=== PATIENT | male | born 1950 | race Caucasian/White ===

== ENCOUNTER → 2016-07-27 | Outpatient (CLI) | payer OTHER | LOC: FIMAGING 13:14 | PROVIDERS: ATTEND Nurse Practitioner Adult Health | DX: R22.42 Localized swelling, mass and lump, left lower limb (principal) ==

== ENCOUNTER → 2016-08-17 | Outpatient (CLI) | payer OTHER ==
[~2016-08-17] MED LIST: IOPAMIDOL (ISOVUE 370) 100 ML BTL IV ONE
== END ==
LOC: FIMAGING 15:57
PROVIDERS: ATTEND Radiology Diagnostic Radiology
DX: M79.89 Other specified soft tissue disorders (principal); N28.1 Cyst of kidney, acquired; K57.30 Diverticulosis of large intestine without perforation or abscess without bleeding; M51.36 Other intervertebral disc degeneration, lumbar region; M12.88 Other specific arthropathies, not elsewhere classified, other specified site
CPT/HCPCS: Q9967

== ENCOUNTER → 2016-09-13 | Outpatient (CLI) | payer OTHER | LOC: FIMAGING 07:33 | PROVIDERS: ATTEND Radiology Diagnostic Radiology | DX: Z01.818 Encounter for other preprocedural examination (principal); R22.42 Localized swelling, mass and lump, left lower limb ==

== ENCOUNTER 2017-07-15 07:43 | Inpatient (IN) | payer OTHER ==
--- NOTE | 2017-07-15 07:53 | EDPHY ---
H & P Time Seen by Provider: 07/15/17 07:52 HPI/ROS: CHIEF COMPLAINT: Chest tightness HISTORY OF PRESENT ILLNESS: Patient started having symptoms this last weekend on Saturday night about 36 hr ago. Intermittent through the day yesterday lasting about an hour with central chest tightness associated with a feeling of indigestion and sweating. Not pleuritic and did not radiate. Symptoms moderate and currently present slightly. Not exertional. REVIEW OF SYSTEMS: Eye: no change in vision ENT: no sore throat Cardiac: No palpitations or syncope Pulmonary: no cough or SOB Abdomen: no vomiting, diarrhea, abdominal pain Musculoskeletal: No leg swelling or calf pain. Skin: no rash Neuro: no headache Constitutional: no fever : no urinary symptoms A comprehensive 10 point review of systems is otherwise negative aside from elements mentioned in the history of present illness. PAST MEDICAL HISTORY: Includes hypertension, gout, back surgery, sleep apnea Family history positive for coronary disease Social history: Nonsmoker General Appearance: Alert and conversant, cooperative. Eyes: No scleral icterus. ENT, Mouth: Normal mucous membranes. Respiratory: Normal respiratory effort, breath sounds equal, lungs are clear to auscultation. Cardiovascular: Irregular rate and rhythm without murmur. Gastrointestinal: Abdomen is soft and non tender. Neurological: Alert, face symmetric, normal motor and sensory in extremities. Skin: Warm and dry, no rashes. Musculoskeletal: No peripheral edema. No calf tenderness. Psychiatric: Not agitated. Emergency Department course/MDM: EKG shows atrial fibrillation rate 76. Plan for oral aspirin, troponin and chest x-ray. Is well rate controlled. Lovenox 1 milligram/kilogram discussed and consented. 903: Labs reviewed, heart score gets 1 point for history, 2 points for age, 1 point for EKG, 1 point for risk factors. Admission hospitalist service, results and plan discussed with patient. Smoking Status: Never smoked Constitutional: Initial Vital Signs Temperature (C) 36.9 C 07/15/17 07:47 Heart Rate 79 07/15/17 07:47 Respiratory Rate 16 07/15/17 07:47 Blood Pressure 181/119 H 07/15/17 07:47 O2 Sat (%) 97 07/15/17 07:47 O2 Delivery Mode Room Air Allergies/Adverse Reactions: Sulfa (Sulfonamide Antibiotics) Allergy (Intermediate, Verified 07/15/17 07:45) Hives Home Medications: Medication Instructions Recorded Minoxidil [Minoxidil 10 mg (*)] 20 mg PO BID 08/21/10 Allopurinol [Allopurinol 300 MG 300 mg PO DAILY 07/15/17 (RX)] Aspirin [Aspirin 81mg (*)] 81 mg PO HS 07/15/17 Carvedilol [Coreg (*)] 25 mg PO BID 07/15/17 Cholecalciferol Vit D3 [Vitamin D3 1,000 units PO DAILY 07/15/17 (*)] Eplerenone [Inspra 25 MG (*)] 50 mg PO BID 07/15/17 Herbals/Supplements -Info Only 1 each PO DAILY 07/15/17 Torsemide 10 mg PO DAILY 07/15/17 Medical Decision Making - Diagnostics EKG Interpretation: 12-lead EKG interpreted by me; official reading is in trace master. My interpretation is atrial flutter rate 76 without acute ischemic changes. Imaging Results: Imaging Impressions Chest X-Ray 07/15/17 08:07 Impression: Mild cardiomegaly, with no evidence of CHF or focal infiltrate. Chest x-ray shows clear lungs and normal heart with previous cervical spine surgery fusion hardware. Imaging: I viewed and interpreted images myself Differential Diagnosis: Differential diagnosis considered for chest pain including but not limited to myocardial ischemia, aortic dissection, pericarditis, pulmonary embolus, chest wall pain, pleural inflammation and pulmonary infectious causes. Consult/Admit Bed Type: [place] [id number] - Data Points Laboratory Results: Laboratory Results 07/15/17 08:00 07/15/17 08:00 07/15/17 07/15/17 08:00 08:00 WBC 7.73 10^3/uL 10^3/uL (3.80-9.50) RBC 5.89 10^6/uL 10^6/uL (4.40-6.38) Hgb 17.5 g/dL g/dL (13.7-17.5) Hct 50.3 % % (40.0-51.0) MCV 85.4 fL fL (81.5-99.8) MCH 29.7 pg pg (27.9-34.1) MCHC 34.8 g/dL g/dL (32.4-36.7) RDW 13.6 % % (11.5-15.2) Plt Count 232 10^3/uL 10^3/uL (150-400) MPV 10.8 fL fL (8.7-11.7) Neut % (Auto) 51.9 % % (39.3-74.2) Lymph % (Auto) 35.3 % % (15.0-45.0) [place] % (Auto) 10.5 % % (4.5-13.0) Eos % (Auto) 1.7 % % (0.6-7.6) Baso % (Auto) 0.5 % % (0.3-1.7) Nucleat RBC Rel Count 0.0 % % (0.0-0.2) Absolute Neuts (auto) 4.01 10^3/uL 10^3/uL (1.70-6.50) Absolute Lymphs (auto) 2.73 10^3/uL 10^3/uL (1.00-3.00) Absolute Monos (auto) 0.81 10^3/uL H 10^3/uL (0.30-0.80) Absolute Eos (auto) 0.13 10^3/uL 10^3/uL (0.03-0.40) Absolute Basos (auto) 0.04 10^3/uL 10^3/uL (0.02-0.10) Absolute Nucleated RBC 0.00 10^3/uL 10^3/uL (0-0.01) Immature Gran % 0.1 % % (0.0-1.1) Immature Gran # 0.01 10^3/uL 10^3/uL (0.00-0.10) Sodium 144 mEq/L mEq/L (135-145) Potassium 4.1 mEq/L mEq/L (3.3-5.0) Chloride 104 mEq/L mEq/L (97-110) Carbon Dioxide 26 mEq/l mEq/l (22-31) Anion Gap 14 mEq/L mEq/L (8-16) BUN 21 mg/dL mg/dL (7-23) Creatinine 1.0 mg/dL mg/dL (0.7-1.3) Estimated GFR > 60 Glucose 106 mg/dL H mg/dL (70-100) Calcium 9.3 mg/dL mg/dL (8.5-10.4) Troponin I 0.024 ng/mL ng/mL (0.000-0.034) TSH 3.070 uIU/mL uIU/mL (0.465-4.680) Medications Given: Discontinued Medications Aspirin (Aspirin) 324 mg PO EDNOW ONE Stop: 07/15/17 08:08 Last Admin: 07/15/17 08:31 Dose: 324 mg Enoxaparin Sodium (Lovenox) 100 mg SC EDNOW ONE Stop: 07/15/17 09:37 Last Admin: 07/15/17 09:48 Dose: 100 mg Departure - Departure Disposition: [facility] Inpatient Acute Clinical Impression: Atrial flutter Qualifiers: Atrial flutter type: typical Qualified Code(s): I48.3 - Typical atrial flutter Chest pain Qualifiers: Chest pain type: unspecified Qualified Code(s): R07.9 - Chest pain, unspecified Condition: Good
--- NOTE | 2017-07-15 07:58 | CPEKG ---
Heart Rate: 76 RR Interval: 789 QRSD Interval: 104 QT Interval: 420 QTC Interval: 473 QRS Adams: 43 T Wave Adams: 165 EKG Severity - ABNORMAL ECG - EKG Impression: ATRIAL FIBRILLATION, V-RATE 62-83 EKG Impression: ABNORMAL T, CONSIDER ISCHEMIA, ANT-LAT LEADS Electronically Signed By: Zander Seymour 15-Jul-2017 08:09:44
[2017-07-15] MEDS ORDERED: ASPIRIN 81 MG CHEWABLE TAB PO ONE (08:07)
[2017-07-15 08:19] LABS: PLATELET COUNT 232 10^3/uL (150-400)
[2017-07-15] MEDS ORDERED: ENOXAPARIN 100 MG/ML SYR SC ONE (09:36)
[2017-07-15] MEDS ORDERED: ACETAMINOPHEN 325 MG TAB PO PRN (09:47)
[2017-07-15] MEDS ORDERED: ONDANSETRON 4 MG/2 ML VIAL IVP PRN (09:47)
--- NOTE | 2017-07-15 11:40 | ECHO ---
[email or web address] [address] [address] Main: [phone] Fax: [email or web address] Echocardiogram Name: PRADEEP MELGAR MR#: [id number] Study Date: 07/15/2017 Study Time: 10:17 AM Date of : 1950 Age: 67 year(s) Height: 180.3 cm (71 in.) Weight: 104.33 kg (230 lb.) BSA: 2.24 m2 Gender: Male Examination: Echo Indication: new afib Image Quality: Adequate Contrast: Requested by: Rachna Collins BP: 153 mmHg/96 mmHg Heart Rate: Rhythm: Atrial fibrillation Indication: new afib Procedure Staff Environmental Sampling Technician: Brenda Maria NNEKA Reading Physician: Apolinar Ibarra MD Requesting Provider: Conclusions: No pericardial effusion. Left ventricular hypertrophy with ejection fraction of 71%. Trileaflet aortic valve with dilated ascending aorta at 4.2 cm Measurements: Chambers Valvular Assessment AV/MV Valvular Assessment TV/PV Normal Normal Normal Name Value Range Name Value Range Name Value Range Ao Zoe (MM): 3.5 cm (2.2 cm-3.7 AV Vmax: 1.76 m/s (1 m/s-1.7 PV Vmax: 0.67 m/s (0.6 m/s-0.9 cm) m/s) m/s) IVSd (2D): 1.5 cm (0.6 cm-1.1 AV maxP mmHg ( - ) PV PGmax: 2 mmHg ( - ) cm) LVOT Vmax: 1.42 m/s (0.7 m/s-1.1 LVDd (2D): 4.3 cm (4.2 cm-5.9 m/s) cm) DEIRDRE (Vmax): 3.1 cm2 ( - ) LVDs (2D): 2.6 cm (2.1 cm-4 MV E Vmax: 0.79 m/s ( - ) cm) LVPWd (2D): 1.3 cm (0.6 cm-1 cm) LVOTd 2.2 cm 2.2 cm mm LVEF (BP): 71 % (>=55 %) RVDd(2D): 3.6 cm (1.9 cm-3.8 cmmm) Continued Measurements: Chambers Valvular Assessment AV/MV Name Value Name Value LADs: 4.6 cm MV DecTime: 150 m/s LADs Lon.1 cm LA Area: 29.8 cm2 LA Volume: 101 ml Patient: PRADEEP MELGAR Study Date: 07/15/2017 Page 1 of 2 10:17 AM LA Volume Index: 45.1 ml/m2 TAPSE: 1.8 cm RA Area: 19.5 cm2 Additional Vessels Name Value Ao Ascendin.2 cm Findings: Left Ventricle: Normal size left ventricle. Concentric LV hypertrophy. Normal global systolic LV function. EF is 71 %. No regional wall motion abnormality. Unable to assess diastolic dysfunction. Right Ventricle: Normal size right ventricle. Normal RV function. Left Atrium: The left atrium is moderately dilated. Right Atrium: Right atrial enlargement. Mitral Valve: The mitral valve is normal in appearance and function. Mild mitral valve regurgitation is present. No mitral stenosis is present. Aortic Valve: The aortic valve is tri-leaflet and functions normally. There is no significant aortic valve regurgitation. No aortic valve stenosis is present. Tricuspid Valve: The tricuspid valve is normal in appearance and function. Trivial tricuspid valve regurgitation. Pulmonary artery pressure is not obtained due to inadequate TR jet. Pulmonic Valve: The pulmonic valve is normal in appearance and function. There is no pulmonic regurgitation seen. Aorta: The aorta is normal. Normal size aortic root measuring 3.5 cm. Dilated ascending aorta measuring 4.2 cm. IVC: The IVC is dilated. Pericardium: Trivial pericardial effusion. There is pericardial fat. (No Signature Object) Patient: PRADEEP MELGAR Study Date: 07/15/2017 Page 2 of 2 10:17 AM [id number]
--- NOTE | 2017-07-15 11:43 | GHP ---
[f rep st] HISTORY AND PHYSICAL DATE OF ADMISSION: 07/15/2017 CHIEF COMPLAINT: Chest pain and diaphoresis. HISTORY: The patient is a 67-year-old male who started to develop what he thought was indigestion on Saturday night. He has had constant, left-sided, dull chest pressure since that time. He has inter mittent hot and cold sweats, which is unusual for him. He did not notice any change with activity. Pain is nonpleuritic. He denies any palpitations. PAST MEDICAL HISTORY: 1. Hypertension, following with Dr. Silverio. 2. Gout. 3. Left lower extremity lymphedema. 4. Obstructive sleep apnea, on CPAP. PAST SURGICAL HISTORY: Cervical lumbar surgery, hernia. MEDICATIONS: Please see computerized record for full detailed list. ALLERGIES: Sulfa. SOCIAL HISTORY: No smoking. Drinks 1 alcoholic beverage per day. Lives with his . He works in a lab at [employer]. REVIEW OF SYSTEMS: Complete review of systems obtained. Review of systems negative for constitution al, HEENT, GI, pulmonary, cardiovascular, , hematology, skin, musculoskeletal, endocrine, psych, ex cept for positives and negatives as noted in HPI. FAMILY HISTORY: His mother of a cardiac arrest at age 43. His father had a CABG late in life a nd lived to age 95. PHYSICAL EXAMINATION: GENERAL: Well-developed, well-nourished male, in no acute distress. VITAL SI GNS: Temperature 36.9, pulse 79, blood pressure 181/119, saturating 97% on room air. EYES: Normal conjunctivae. Pupils reactive to light. ENT: Normal ears and nose. Hearing intact. Normal teeth. Oropharynx moist. NECK: Trachea midline. No thyromegaly. CHEST: Normal effort. Lungs clear to auscultation bilaterally. CARDIOVASCULAR: Regular rate and rhythm. No murmur. Trace lower extrem ity edema. ABDOMEN: Soft, nontender. No hepatosplenomegaly. SKIN: Warm, dry, intact, without king h. MUSCULOSKELETAL: No cyanosis or clubbing. Strength 5/5, upper and lower extremities. NEURO: C ranial nerves intact, normal sensation to light touch. PSYCH: Alert and oriented x3. Normal mood a nd affect. Normal judgment and insight. Normal memory. LABORATORY DATA: White count 7.73, hematocrit 50.3, platelets 232, sodium 144, potassium 4.1, chlori de 104, bicarb 24, BUN 21, creatinine 1.0, glucose 106. TSH is 3.07. Troponins negative. EKG revie wed by me. My personal interpretation is atrial fibrillation with a controlled rate of 76, some deep lateral T-wave inversions. Chest x-ray is negative. ASSESSMENT/PLAN: 1. Chest pain. Risk factors include hypertension and family history. We will follow serial troponi ns and EKGs. His story is definitely concerning and warrants further workup. We will check a lipid panel in the morning. He is unable to walk on a treadmill due to his chronic back problems, so will order Lexiscan stress testing for tomorrow provided troponin and EKGs remain unremarkable. 2. New onset atrial fibrillation. He is currently rate controlled, likely because he takes Coreg at baseline for hypertension. We will check an echocardiogram. He got a dose of Lovenox in the emerge ncy room. We will continue Lovenox until ischemia is ruled out in case he needs a cardiac catheteriz ation. At disposition, he should be prescribed Eliquis. Although he seems to be relatively asymptom atic and doing well with a rate control strategy, he is relatively young and active at baseline, coul d consider a one-time cardioversion to see whether he can maintain normal sinus rhythm. He should jensen ve a cardiology consultation at some point. 3. Obstructive sleep apnea. Continue CPAP at night. 4. Hypertension. He follows with Dr. Silverio. Currently on Coreg, minoxidil, Demadex, and eplere none. CODE STATUS: Full. ADMISSION STATUS: 1. Will admit to observation. Will re-evaluate tomorrow regarding ongoing need for hospitalization. 2. DVT prophylaxis. He is being placed on therapeutic doses of Lovenox as above. /[id number]/MODL
--- NOTE | 2017-07-15 13:23 | PDCARCONS ---
Cardiology Consult Reason for Consult: Chest discomfort as well as new atrial fibrillation Chief Complaint: Chest tightness Requesting Physician: Hospitalist Team History of Present Illness: Patient is a 67 y/o male with history of HTN (followed by nephrology), HLP (not currently on therapy), GUERDA with CPAP use (no changes or adjustments to therapy have been made for "many years"), gout, and strong, premature CAD to the family , who presented to [facility] with complaints of chest discomfort. Patient not wanting to call the discomfort "pain", but more pressure. What was more concerning to the patient this recent episode (that has been going on for a few three days) was the addition of diaphoresis. No radiation of the discomfort into the shoulder, neck, or jaw. No PND or orthopnea. Compliance with prescribed medical therapy has been good. The patient does not smoke, but does drink approximately one drink per day. Patient with stress testing in the past (likely over three years ago, for reasons that were not clear to the patient), and recommendations to have more recent stress testing, but this was not performed. Mild chest pressure is noted at present, but no pain. No dizziness or lightheadedness has been noted. Blood pressure today, in his room, was noted to be elevated to >150 mm Hg systolic. Telemetry in the ER with newly noted atrial fibrillation (and rate control). Family history with premature CAD (mother had cardiac arrest at age 43). Father lived to be 95 years of age with CAD/CABG history. Remainder of the 12 point review of systems was unremarkable. History Information - Allergies/Home Medication List Allergies/Adverse Reactions: Sulfa (Sulfonamide Antibiotics) Allergy (Intermediate, Verified 07/15/17 07:45) Hives Home Medications: Minoxidil [Minoxidil 10 mg (*)] 20 mg PO BID 08/21/10 [Last Taken 07/15/17] Allopurinol [Allopurinol 300 MG (RX)] 300 mg PO DAILY 07/15/17 [Last Taken 07/15] Aspirin [Aspirin 81mg (*)] 81 mg PO HS 07/15/17 [Last Taken 07/14/17] Carvedilol [Coreg (*)] 25 mg PO BID 07/15/17 [Last Taken 07/15/17] Cholecalciferol Vit D3 [Vitamin D3 (*)] 1,000 units PO DAILY 07/15/17 [Last Taken Unknown] Eplerenone [Inspra 25 MG (*)] 50 mg PO BID 07/15/17 [Last Taken 07/15/17] Herbals/Supplements -Info Only 1 each PO DAILY 07/15/17 [Last Taken Unknown] Torsemide 10 mg PO DAILY 07/15/17 [Last Taken 07/14/17] I have personally reviewed and updated: family history, medical history, social history, surgical history Past Medical History: - Past Medical History hypertension, hyperlipidemia Additional medical history: Gout, GUERDA with CPAP use - Surgical History Reports: hernia repair - Family History Positive for: CAD, mother with history of CAD younger than 65, myocardial infarction - Social History Smoking Status: Never smoked Alcohol Use: Occasionally Drug Use: None Cardiac History - Cardiac History Cardiac Risk Factors: hypertension (>140/90), lipidemia, family history of premature CAD, age > 65, male Timing/Duration: Days Severity: moderate Severity Scale: 4 Location: substernal, central Activities at Onset: none Modifying Factors: improves with: oxygen, rest Associated Symptoms: chest pain, diaphoresis, shortness of breath FLACO Risk Evaluation age greater or equal to 65: yes greater or equal to 3 CAD risk factors: yes known CAD(stenosis greater or eqaul to 50%): no ASA use in past 7 days: yes severe angina(greater or equal to 2 episodes in 24hrs): no EKG ST changes greater or equal to 0.5mm: no positive cardiac marker: no Total Score: 3 FLACO Score: 13.2% risk Age in Years: 65-74 Sex: Male Congestive Heart Failure History: No Hypertension History: Yes Stroke/TIA/Thromboembolism History: No Vascular Disease History: No Diabetes Mellitus: No [id number] Score: 2 Physical Exam Physical Exam: Temp Pulse Resp BP Pulse Ox 36.9 C 70 17 146/103 H 93 07/15/17 07:47 07/15/17 09:45 07/15/17 09:45 07/15/17 09:45 07/15/17 09:45 Constitutional: no apparent distress, appears nourished, not in pain Eyes: PERRL, EOMI Ears, Nose, Mouth, Throat: moist mucous membranes, ears appear normal Cardiovascular: irregularly irregular, pulses symmetric bilaterally, No JVD, No edema Peripheral Pulses: 2+: dorsalis-pedis (R), dorsalis-pedis (L) Respiratory: no respiratory distress, no rales or rhonchi, clear to auscultation Gastrointestinal: normoactive bowel sounds Musculoskeletal: full muscle strength, no muscle tenderness, normal joint ROM Neurologic: AAOx3, sensation intact bilaterally, CN II-XII Intact Psychiatric: interacting appropriately, not anxious, not encephalopathic Lab and Imaging 07/15/17 08:00 07/15/17 08:00 WBC 7.73 10^3/uL (3.80-9.50) 07/15/17 08:00 RBC 5.89 10^6/uL (4.40-6.38) 07/15/17 08:00 Hgb 17.5 g/dL (13.7-17.5) 07/15/17 08:00 Hct 50.3 % (40.0-51.0) 07/15/17 08:00 MCV 85.4 fL (81.5-99.8) 07/15/17 08:00 MCH 29.7 pg (27.9-34.1) 07/15/17 08:00 MCHC 34.8 g/dL (32.4-36.7) 07/15/17 08:00 RDW 13.6 % (11.5-15.2) 07/15/17 08:00 Plt Count 232 10^3/uL (150-400) 07/15/17 08:00 MPV 10.8 fL (8.7-11.7) 07/15/17 08:00 Neut % (Auto) 51.9 % (39.3-74.2) 07/15/17 08:00 Lymph % (Auto) 35.3 % (15.0-45.0) 07/15/17 08:00 [place] % (Auto) 10.5 % (4.5-13.0) 07/15/17 08:00 Eos % (Auto) 1.7 % (0.6-7.6) 07/15/17 08:00 Baso % (Auto) 0.5 % (0.3-1.7) 07/15/17 08:00 Nucleat RBC Rel Count 0.0 % (0.0-0.2) 07/15/17 08:00 Absolute Neuts (auto) 4.01 10^3/uL (1.70-6.50) 07/15/17 08:00 Absolute Lymphs (auto) 2.73 10^3/uL (1.00-3.00) 07/15/17 08:00 Absolute Monos (auto) 0.81 10^3/uL (0.30-0.80) H 07/15/17 08:00 Absolute Eos (auto) 0.13 10^3/uL (0.03-0.40) 07/15/17 08:00 Absolute Basos (auto) 0.04 10^3/uL (0.02-0.10) 07/15/17 08:00 Absolute Nucleated RBC 0.00 10^3/uL (0-0.01) 07/15/17 08:00 Immature Gran % 0.1 % (0.0-1.1) 07/15/17 08:00 Immature Gran # 0.01 10^3/uL (0.00-0.10) 07/15/17 08:00 Sodium 144 mEq/L (135-145) 07/15/17 08:00 Potassium 4.1 mEq/L (3.3-5.0) 07/15/17 08:00 Chloride 104 mEq/L (97-110) 07/15/17 08:00 Carbon Dioxide 26 mEq/l (22-31) 07/15/17 08:00 Anion Gap 14 mEq/L (8-16) 07/15/17 08:00 BUN 21 mg/dL (7-23) 07/15/17 08:00 Creatinine 1.0 mg/dL (0.7-1.3) 07/15/17 08:00 Estimated GFR > 60 07/15/17 08:00 Glucose 106 mg/dL (70-100) H 07/15/17 08:00 Calcium 9.3 mg/dL (8.5-10.4) 07/15/17 08:00 Troponin I 0.024 ng/mL (0.000-0.034) 07/15/17 08:00 TSH 3.070 uIU/mL (0.465-4.680) 07/15/17 08:00 Visualized and Interpreted Chest x-ray results: Yes Chest X-ray Interpretation: no infiltrate, other (mild dilation of the cardiac silhouette) Visualized and Interpreted imaging results: Yes Visualized and Interpreted EKG results: Yes EKG Interpretation: Positive for: other (atrial fibrillation) A/P Assessment: Patient is a 67 y/o male with history of HTN (on therapy), HLP (not on therapy) , and strong, premature CAD to the family. Stress testing in the past (>3 years ago) without pathology noted. Recommendations for repeat stress testing in the recent past, but the patient had not scheduled. Chest pressure (not enedina pain ) has been noted with newly associated diaphoresis. Telemetry without ischaemic changes in the ER, but newly noted atrial fibrillation (no awareness of palpitations or irregularity). Cardiac biomarkers have been normal. Echocardiogram with normal LVEF, chamber dimensions, and no valve pathology. Plan: Patient is scheduled for Olga MPI tomorrow. Would continue Coreg as at present or HTN management. There may be a need to uptitrate this therapy given the ongoing elevation in blood pressure noted. Would have outpatient follow up with pulmonary/critical care to reassess the settings on the CPAP Would consider addition of statins (not RYRE) for assistance with cholesterol - would ensure that recent cholesterol and LFTs have been drawn Lovenox should continue for CVA prophylaxis at present ([id number] score of 2 for HTN and age), and wait to determine if further invasive testing is needed. Would consider NOAC therapy over coumadin/warfarin given ease of use and limited fluctuations in therapeutic levels. We will continue to follow patient through this hospital stay
[2017-07-15] MEDS: ASPIRIN 81 MG CHEWABLE TAB PO SCH (20:51)
[2017-07-15] MEDS: MINOXIDIL 10 MG TAB PO SCH (20:51)
[2017-07-15] MEDS: EPLERENONE 25 MG TAB PO SCH (20:51)
[2017-07-15] MEDS: ENOXAPARIN 100 MG/ML SYR SC SCH (20:51)
[2017-07-15] MEDS: CARVEDILOL 25 MG TAB PO SCH (20:54)
[2017-07-16] MEDS: ENOXAPARIN 100 MG/ML SYR SC SCH (08:49)
[2017-07-16] MEDS: ALLOPURINOL 300 MG TAB PO SCH (08:50)
--- NOTE | 2017-07-16 08:58 | CPEKG ---
Heart Rate: 69 RR Interval: 870 P-R Interval: 176 QRSD Interval: 106 QT Interval: 432 QTC Interval: 463 P Lockwood: 18 QRS [place]: 45 T Wave [place]wood: 136 EKG Severity - ABNORMAL ECG - EKG Impression: SINUS RHYTHM EKG Impression: PROBABLE LEFT ATRIAL ABNORMALITY EKG Impression: ABNORMAL T, CONSIDER ISCHEMIA, LATERAL LEADS Electronically Signed By: Nick Mabry 16-Jul-2017 10:35:43
[2017-07-16] MEDS ORDERED: ASPIRIN EC 325 MG TAB PO SCH (09:00)
[2017-07-16] MEDS ORDERED: REGADENOSON 0.4 MG/5 ML SYR IVP ONE (09:28)
[2017-07-16] MEDS: TORSEMIDE 10 MG TAB PO SCH (10:26)
[2017-07-16] MEDS: MINOXIDIL 10 MG TAB PO SCH ×2 (10:26→20:58)
[2017-07-16] MEDS: CARVEDILOL 25 MG TAB PO SCH ×2 (10:27→17:32)
[2017-07-16] MEDS: EPLERENONE 25 MG TAB PO SCH ×2 (10:27→20:58)
--- NOTE | 2017-07-16 12:36 | PDCARST ---
CAR Stress Test Results Type of Stress Test: Lexiscan stress test Indication: chest pressure Description of Procedure: After informed consent was obtained, pt was established to ECG, blood pressure, HR and oximetry monitoring. STRESS EKG AND HEMODYNAMIC DATA. Resting heart rate: 67 BPM. Resting ECG: SR with LVH and strain pattern. Resting blood pressure: 162/90 mmHg. O2 saturation at rest: 96%. Peak heart rate: 105 BPM. Peak blood pressure: 164/98 mmHg. Arrhythmias: none. Symptoms: The patient experienced no typical symptoms of angina during stress or recovery. . Stress/Infusion ECG: No change in rhythm with no significant ST/T wave changes. Stress/infusion O2 saturation: 94% Impression: Uneventful Lexiscan infusion. Conclusion: Await nuclear images.
--- NOTE | 2017-07-16 12:37 | PDCARPN ---
Cardiology Progress Note Chief Complaint: No cardiovascular complaints at present. Patient converted from atrial fibrillation to normal sinus rhythm last night/early this morning Assessment/Plan: Assessment: 07-16-17 Patient doing well today. No cardiovascular complaints. Stress testing was performed this morning, and there is an equivocal anterior (small) region of ischaemia noted. No voiced cardiovascular complaints of chest pains or pressure. No PND or orthopnea. Telemetry with normal sinus rhythm noted. Patient might feel slightly less dyspnea today (with normal sinus rhythm reestablished) than yesterday. 07-15-17 Patient is a 67 y/o male with history of HTN (followed by nephrology), HLP (not currently on therapy), GUERDA with CPAP use (no changes or adjustments to therapy have been made for "many years"), gout, and strong, premature CAD to the family , who presented to [facility] with complaints of chest discomfort. Patient not wanting to call the discomfort "pain", but more pressure. What was more concerning to the patient this recent episode (that has been going on for a few three days) was the addition of diaphoresis. No radiation of the discomfort into the shoulder, neck, or jaw. No PND or orthopnea. Compliance with prescribed medical therapy has been good. The patient does not smoke, but does drink approximately one drink per day. Patient with stress testing in the past (likely over three years ago, for reasons that were not clear to the patient), and recommendations to have more recent stress testing, but this was not performed. Mild chest pressure is noted at present, but no pain. No dizziness or lightheadedness has been noted. Blood pressure today, in his room, was noted to be elevated to >150 mm Hg systolic. Telemetry in the ER with newly noted atrial fibrillation (and rate control). Family history with premature CAD (mother had cardiac arrest at age 43). Father lived to be 95 years of age with CAD/CABG history. Plan: (1) discussion about further invasive testing (angiogram) given the "small" defect on stress testing (2) anticoagulation with Eliquis (or NOAC of choice) given the newly noted atrial fibrillation ([id number] score of 2) (3) would continue antihypertensive therapy as at present, as well as follow up with nephrology (as scheduled) (4) continue therapy on CPAP with GUERDA history and the newly noted atrial fibrillation - patient may do well with a revision of the CPAP settings (some time has passed without changes to the setting made) (5) issues with statins in the past have made patient apprehensive of their use going forward Subjective: no cardiovascular complaints Reviewed/Discussed With: family, hospitalist Objective: Vital Signs (8 Hrs) Temp Pulse Resp BP Pulse Ox 07/16/17 11:49 36.8 C 75 18 118/71 93 07/16/17 08:18 36.8 C 66 18 156/103 H 96 Intake/Output (24 Hrs) 07/15/17 07/16/17 07/17/17 05:59 05:59 05:59 Intake Total 800 Balance 800 Intake: Oral (ml) 800 IV Intake (ml) 0 Other: Weight 104.326 kg Number of Voids Toilet 2 Result Diagrams: 07/15/17 08:00 07/15/17 08:00 Cardiac Labs: Cardiac Lab Results (72 Hrs) 07/15/17 07/15/17 20:08 13:55 Troponin I 0.018 0.017 Telemetry: normal sinus rhythm - Physical Exam Constitutional: WDWN, healthy appearing, no apparent distress Eyes: PERRL, EOMI Ears, Nose, Mouth, Throat: moist mucous membranes Cardiovascular: regular rate and rhythm, no murmurs, no rubs, no gallops, pulses symmetric bilat, No jugular vein distention Peripheral Pulses: 2+: dorsalis-pedis (R), dorsalis-pedis (L) Respiratory: clear to auscultate bilat, no crackles, no wheezes Gastrointestinal: normoactive bowel sounds Skin: no rashes, no edema Musculoskeletal: no muscular tenderness Neurologic: AAOx3, CN II-XII grossly intact Psychiatric: cooperative, interactive, following commands ICD10 Worksheet Patient Problems: Problems Problem Status Onset Atrial flutter Acute Chest pain Acute
--- NOTE | 2017-07-16 14:41 | ASMTCMCOM ---
CM Note CM Note Notes: Patient admitted with chest pain. A Fib was noted in the ED, but patient has converted back to NSR as of last night. Patient has a family hx of CAD, and he has a hx of HTN, HLP, and GUERDA (uses CPAP at home). He lives with his , is normally independent, and works at [employer]. I don't anticipate any discharge needs but Case Management available if any arise. Current CM Discharge plan: home Date Signed: 07/16/2017 02:41 PM Electronically Signed By:Zee Plummer RN
--- NOTE | 2017-07-16 14:51 | PDCONSULT ---
Double Back Operator Note: After discussion with the patient about both symptoms (chest pressure/tightness ) with diaphoresis, and strong, premature, coronary artery disease to the family , with the small, reversible anterior/apical perfusion defect, discussion about left heart catheterization was undertaken with both patient and . A second option, would be for the patient to convert from Lovenox to Eliquis, and be seen in the outpatient setting for further discussion about options. Being that the patient is on lovenox, and in house, they agreed to have angiogram tomorrow. Lovenox dose tonight, but none in the morning. Further recommendations after testing has been completed.
--- NOTE | 2017-07-16 15:22 | HOSPPROG ---
Hospitalist Progress Note Assessment/Plan: * Chest pain - mild + stress test, but lots of risk factors -d/w Dr. Pickett - cath in am * New onset PAF -hold lovenox for cath -eliquis at disharge -continue coreg * HTN -followed by Dr. Silverio * GUERDA - CPAP * Obesity BMI 32 Subjective: No new complaints. Objective: Vital Signs Temp Pulse Resp BP Pulse Ox 36.8 C 75 18 118/71 93 07/16/17 11:49 07/16/17 11:49 07/16/17 11:49 07/16/17 11:49 07/16/17 11:49 07/15/17 07/16/17 07/17/17 05:59 05:59 05:59 Intake Total 800 Balance 800 nuc med stress test - mild ischemia EKG viewed, my personal interpretation is - persistent lateral TWI - Physical Exam Constitutional: no apparent distress, appears nourished, not in pain Cardiovascular: regular rate and rhythym, no murmur, rub, or gallop Respiratory: no respiratory distress, no rales or rhonchi, clear to auscultation Gastrointestinal: normoactive bowel sounds, soft, non-tender abdomen, no palpable masses Skin: no rashes or abrasions, no fluctuance, no induration Neurologic: AAOx3, sensation intact bilaterally Psychiatric: interacting appropriately, not anxious, not encephalopathic, thought process linear ICD10 Worksheet Patient Problems: Problems Problem Status Onset Atrial flutter Acute Chest pain Acute
--- NOTE | 2017-07-16 17:07 | PDMN ---
Medical Necessity Medical necessity: MCG M40 angina A-1 day: stress test shows ischemia, EKG with persistent lateral TWI further eval needed - cardiac cath in am. need for med. nec tx monitoring > 2 midnights- family hx of early CAD - mother :43 yrs old
[2017-07-16] MEDS: ASPIRIN 81 MG CHEWABLE TAB PO SCH (20:58)
[2017-07-17] MEDS ORDERED: diphenhydrAMINE 25 MG CAP PO ONE (08:47)
[2017-07-17] MEDS ORDERED: FAMOTIDINE 20 MG TAB PO ONE (08:47)
[2017-07-17] MEDS ORDERED: DIAZEPAM 5 MG TAB PO ONE (08:47)
[2017-07-17] MEDS ORDERED: ASPIRIN EC 325 MG TAB PO ONE (08:47)
[2017-07-17] MEDS ORDERED: NITROGLYCERIN 0.4 MG BTL SL PRN (08:47)
[2017-07-17] MEDS ORDERED: TEMAZEPAM 15 MG CAP PO PRN (08:47)
[2017-07-17] MEDS: MINOXIDIL 10 MG TAB PO SCH ×2 (08:54→20:31)
[2017-07-17] MEDS: EPLERENONE 25 MG TAB PO SCH ×2 (08:54→20:32)
[2017-07-17] MEDS: CARVEDILOL 25 MG TAB PO SCH ×2 (08:54→17:56)
[2017-07-17 09:28] LABS: INR 0.92 (0.83-1.16); PROTIME(PATIENT) 12.6 SEC (12.0-15.0)
--- NOTE | 2017-07-17 09:54 | CPEKG ---
Heart Rate: 59 RR Interval: 1017 P-R Interval: 168 QRSD Interval: 104 QT Interval: 460 QTC Interval: 456 P Hixson: 15 QRS Hixson: 18 T Wave Hixson: 143 EKG Severity - ABNORMAL ECG - EKG Impression: SINUS RHYTHM EKG Impression: PROBABLE LEFT ATRIAL ABNORMALITY EKG Impression: ABNORMAL T, CONSIDER ISCHEMIA, LATERAL LEADS Electronically Signed By: Nikc Mabry 18-Jul-2017 10:48:06
--- NOTE | 2017-07-17 10:26 | PDCARPN ---
Cardiology Progress Note Chief Complaint: No cardiovascular complaints overnight. Patient is pain/discomfort free Assessment/Plan: Assessment: 07-17-17 Patient in the CVC at present for angiogram. Risks and benefits were discussed , and consents were signed. was present with the patient in the CVC. 07-16-17 Patient doing well today. No cardiovascular complaints. Stress testing was performed this morning, and there is an equivocal anterior (small) region of ischaemia noted. No voiced cardiovascular complaints of chest pains or pressure. No PND or orthopnea. Telemetry with normal sinus rhythm noted. Patient might feel slightly less dyspnea today (with normal sinus rhythm reestablished) than yesterday. 07-15-17 Patient is a 67 y/o male with history of HTN (followed by nephrology), HLP (not currently on therapy), GUERDA with CPAP use (no changes or adjustments to therapy have been made for "many years"), gout, and strong, premature CAD to the family , who presented to [facility] with complaints of chest discomfort. Patient not wanting to call the discomfort "pain", but more pressure. What was more concerning to the patient this recent episode (that has been going on for a few three days) was the addition of diaphoresis. No radiation of the discomfort into the shoulder, neck, or jaw. No PND or orthopnea. Compliance with prescribed medical therapy has been good. The patient does not smoke, but does drink approximately one drink per day. Patient with stress testing in the past (likely over three years ago, for reasons that were not clear to the patient), and recommendations to have more recent stress testing, but this was not performed. Mild chest pressure is noted at present, but no pain. No dizziness or lightheadedness has been noted. Blood pressure today, in his room, was noted to be elevated to >150 mm Hg systolic. Telemetry in the ER with newly noted atrial fibrillation (and rate control). Family history with premature CAD (mother had cardiac arrest at age 43). Father lived to be 95 years of age with CAD/CABG history. Plan: (1) angiography this morning (2) anticoagulation with Eliquis (or NOAC of choice) given the newly noted atrial fibrillation ([id number] score of 2) (3) would continue antihypertensive therapy as at present, as well as follow up with nephrology (as scheduled) (4) continue therapy on CPAP with GUERDA history and the newly noted atrial fibrillation - patient may do well with a revision of the CPAP settings (some time has passed without changes to the setting made) (5) issues with statins in the past have made patient apprehensive of their use going forward Subjective: No cardiovascular complaints Reviewed/Discussed With: family Objective: Vital Signs (8 Hrs) Temp Pulse Resp BP Pulse Ox 07/17/17 07:22 36.6 C 61 16 173/107 H 95 07/17/17 04:00 36.3 C 64 16 155/101 H 94 Intake/Output (24 Hrs) 07/16/17 07/17/17 07/18/17 05:59 05:59 05:59 Intake Total 800 1050 Balance 800 1050 Intake: Oral (ml) 800 1050 IV Intake (ml) 0 0 Other: Weight 104.326 kg Number of Voids Toilet 2 3 Result Diagrams: 07/15/17 08:00 07/15/17 08:00 Cardiac Labs: Cardiac Lab Results (72 Hrs) 07/15/17 07/15/17 20:08 13:55 Troponin I 0.018 0.017 Telemetry: sinus rhythm - Physical Exam Constitutional: WDWN, healthy appearing, no apparent distress Eyes: PERRL, EOMI Ears, Nose, Mouth, Throat: moist mucous membranes Cardiovascular: regular rate and rhythm, no murmurs, pulses symmetric bilat, No jugular vein distention Peripheral Pulses: 2+: dorsalis-pedis (R), dorsalis-pedis (L) Respiratory: clear to auscultate bilat, no crackles, no wheezes Gastrointestinal: normoactive bowel sounds Skin: no rashes, no edema Musculoskeletal: no muscular tenderness Neurologic: AAOx3, CN II-XII grossly intact Psychiatric: cooperative, interactive, following commands ICD10 Worksheet Patient Problems: Problems Problem Status Onset Atrial flutter Acute Chest pain Acute
--- NOTE | 2017-07-17 10:27 | PDPROPOC ---
Sedation Plan of Care Sedation Plan of Care: vital signs stable, mental status noted, patient educated of risks, benefits, alternatives, patient can tolerate sedation ASA Classification: ASA 2 Planned drugs: fentanyl, midazolam Mallampati Score: Class 1 Mallampati Reference Image: Patient passed 3-3-2 rule?: Yes
[2017-07-17] MEDS ORDERED: fentaNYL 100 MCG/2 ML INJ ONE (10:47)
[2017-07-17] MEDS ORDERED: LIDOCAINE 1% 300 MG/30 ML SDV ONE (10:47)
[2017-07-17] MEDS ORDERED: MIDAZOLAM 2 MG/2 ML VIAL ONE (10:47)
[2017-07-17] MEDS ORDERED: IOPAMIDOL (ISOVUE-370) 150 ML BTL IV ONE (10:48)
--- NOTE | 2017-07-17 12:48 | PDDXCAT ---
Diagnostic Cath Note - . Date: 07/17/17 Crematory Operator: Nieves Indication: Serial noninvasive testing w progressively worsening abnormalities - Procedure Access: right groin Procedure: left heart catheterization, coronary angiography, left ventriculogram - Materials Left Heart Cath size: 6F Left Heart Cath materials: standard multipack (JL4, JR4, pigtail) - Findings-Left Heart Catheterization LM: Very short vessel, with almost immediate bifurcation into the LCX and LAD vessels. No obvious luminal irregularities were noted to this vessel. Calcification noted prior to the injection of the vessel. LAD: Medium diameter vessel with moderate proximal and mid calcification noted. There were to principal diagonals - both were noted to be medium diameter vessels. The first diagonal with ostial subtotal occlusion. The second diagonal, just prior to a bifucation, had >90% stenosis noted. Distally, it appears as if there is an absence of the LAD proper (no obvious occlusion noted , but no distal LAD was noted. LCX: The LCX is a medium diameter vessel with an early take of OM1 (principal). In the mid portion of this medium diameter vessel, involving a bifurcation, there is an >80% lesion noted. RCA: This is a large, aneurysmal vessel. Distally at PDA/BALJINDER bifurcation, there is a critical lesion >80%. Within the PDA there is a second lesion of >70 % noted. It appears as if the distal RCA feels the distal territory of the LAD (right to left collaterals). EDP: 24 mm Hg LVEF: 60% Wall motion: grossly normal Complications: none Estimated blood loss: <50ml Closure method: Angioseal Assessment: Patient is a 67 y/o male with history of HTN, HLP, and a very strong , premature CAD family history with admission for "chest discomfort" and newly noted, asymptomatic atrial fibrillation. Cath today with critical multivessel CAD noted. Normal LVEF was appreciated. Plan: Recommendations for CT surgery consultation Intervention: none Patient Problems: Problems Problem Status Onset Atrial flutter Acute Chest pain Acute
[2017-07-17] MEDS ORDERED: ATROPINE SULFATE 1 MG/10 ML SYR IVP PRN (12:54)
[2017-07-17] MEDS: TORSEMIDE 10 MG TAB PO SCH (15:16)
[2017-07-17] MEDS: ALLOPURINOL 300 MG TAB PO SCH (15:16)
--- NOTE | 2017-07-17 16:40 | GCON ---
[f rep st] CONSULTATION DATE OF CONSULTATION: 07/17/2017 REFERRING PHYSICIAN: Rory Santnaa DO Patient seen at the request of Dr. Santana with the patient's permission. IMPRESSION: 1. Unstable angina pectoris with severe 3-vessel disease. 2. New onset of rapid atrial fibrillation. 3. Poorly-controlled hypertension, chronically. 4. Mild obesity. 5. Gout. 6. Sleep apnea. RECOMMENDATIONS: This gentleman should undergo coronary artery revascularization. He has diffuse 3- vessel disease, not amenable to PCI. He also presented with rapid atrial fibrillation. We will cons ider during Magallon-Maze IV after reviewing it with Electrophysiology. Risks, complications, as well as alternatives including medical therapy were reviewed at length with the patient. Given a strong fami ly history, is agreeable to proceeding with surgery. He will be scheduled as soon as possible. CHIEF COMPLAINT: Chest pressure and shortness of breath with associated rapid atrial fibrillation on admission several nights prior. He since underwent a nuclear study which was mildly abnormal. Diag nostic left heart cath today showed severe 3-vessel disease with preserved LV function. MEDICAL HISTORY: As stated. SURGERIES: Include back surgery, tonsillectomy, and a retinal detachment. FAMILY HISTORY: Markedly positive for his mother dying from myocardial infarction in her 40s. SOCIAL HISTORY: Socially he has never drank. 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 He drin ks 1 drink per day. ALLERGIES: Sulfa which causes rash. REVIEW OF SYSTEMS: Except for chief complaint at the present time, he is quite comfortable. PHYSICAL EXAM: GENERAL APPEARANCE: A mildly overweight, middle-aged gentleman sitting in the chair, accompanied by his in no apparent distress. VITAL SIGNS: 140/97, heart rate 62, respirations 1 6, O2 saturation 96 on room air. Afebrile. HEENT: Normocephalic, PERRLA, EOMI. NECK: Without bru it, adenopathy, or thyromegaly. HEART: Rate is regular. LUNGS: Clear. ABDOMEN: Soft. Bowel brandt nds are active. RECTAL AND GENITAL: Deferred. NEUROLOGIC: Grossly intact. Motor and sensory inta ct distally. 2+ pedal pulses. He has mild edema in the lower extremities. Please see cath report for details. /[id number]/MODL
--- NOTE | 2017-07-17 17:51 | HOSPPROG ---
Hospitalist Progress Note Assessment/Plan: * CAD - 3 vessel CAD -CT surgery consult * New onset PAF -holding Lovenox for surgery -eliquis at disharge -continue coreg * HTN -followed by Dr. Silverio * GUERDA - CPAP * Obesity BMI 32 * Hyperlipidemia -start statin Subjective: No new complaints. Objective: Vital Signs Temp Pulse Resp BP Pulse Ox 36.7 C 62 16 140/97 H 96 07/17/17 15:17 07/17/17 15:17 07/17/17 15:17 07/17/17 15:17 07/17/17 15:17 07/16/17 07/17/17 07/18/17 05:59 05:59 05:59 Intake Total 800 1050 Balance 800 1050 PT 12.6 SEC (12.0-15.0) 07/17/17 09:00 INR 0.92 (0.83-1.16) 07/17/17 09:00 d/w DR. Pickett - 3 vessel CAD Laboratory Tests 07/16/17 03:48 LDL Cholesterol, Calc 111 H EKG viewed by me, my personal interpretation is - Twave a little more flipped - Physical Exam Constitutional: no apparent distress, appears nourished, not in pain Cardiovascular: regular rate and rhythym, no murmur, rub, or gallop Respiratory: no respiratory distress, no rales or rhonchi, clear to auscultation Gastrointestinal: normoactive bowel sounds, soft, non-tender abdomen, no palpable masses Skin: no rashes or abrasions, no fluctuance, no induration Neurologic: AAOx3, sensation intact bilaterally Psychiatric: interacting appropriately, not anxious, not encephalopathic, thought process linear ICD10 Worksheet Patient Problems: Problems Problem Status Onset Atrial flutter Acute Chest pain Acute
[2017-07-17] MEDS: ATORVASTATIN CALCIUM 40 MG TAB PO SCH (18:25)
[2017-07-17] MEDS: ASPIRIN 81 MG CHEWABLE TAB PO SCH (20:32)
[2017-07-18] MEDS: ALLOPURINOL 300 MG TAB PO SCH (08:53)
[2017-07-18] MEDS: CARVEDILOL 25 MG TAB PO SCH ×2 (08:54→18:02)
[2017-07-18] MEDS: EPLERENONE 25 MG TAB PO SCH ×2 (08:54→20:20)
[2017-07-18] MEDS: TORSEMIDE 10 MG TAB PO SCH (08:54)
[2017-07-18] MEDS: MINOXIDIL 10 MG TAB PO SCH ×2 (08:54→20:20)
[2017-07-18] MEDS: ATORVASTATIN CALCIUM 40 MG TAB PO SCH (08:54)
--- NOTE | 2017-07-18 10:35 | ASMTCMCOM ---
CM Note CM Note Notes: 07/18/2017 Case Management Note Discussed case with RN. Pt to have open heart tomorrow. Case Management d/c poc: to be determined. Case Management to follow. Date Signed: 07/18/2017 10:34 AM Electronically Signed By:Gaby Moreira RN
--- NOTE | 2017-07-18 13:54 | HOSPPROG ---
Hospitalist Progress Note Assessment/Plan: 67 yo M w/PMH of HTN admitted with chest pain * CAD - 3 vessel CAD -CT surgery consult * New onset PAF -holding Lovenox for surgery -eliquis at disharge -continue coreg * HTN -followed by Dr. Silverio * GUERDA - CPAP * Obesity BMI 32 * Hyperlipidemia -start statin IP status Patient new to my care. Old records reviewed/summarized as above. Subjective: no significant overnight events, slightly anxious about surgery in am, questions answered Objective: Vital Signs Temp Pulse Resp BP Pulse Ox 36.7 C 69 12 128/84 H 95 07/18/17 11:33 07/18/17 11:33 07/18/17 11:33 07/18/17 11:33 07/18/17 11:33 07/17/17 07/18/17 07/19/17 05:59 05:59 05:59 Intake Total 1050 1000 Balance 1050 1000 PT 12.6 SEC (12.0-15.0) 07/17/17 09:00 INR 0.92 (0.83-1.16) 07/17/17 09:00 awake alert nad anicteric op clear rrr no mrg cta b soft nt nd no cce warm dry well perfused oriented appropriate ICD10 Worksheet Patient Problems: Problems Problem Status Onset Atrial flutter Acute Chest pain Acute
--- NOTE | 2017-07-18 14:42 | PDCARPN ---
Cardiology Progress Note Chief Complaint: No cardiovascular complaints today. Uneventful night Assessment/Plan: Assessment: 07-18-17 Patient doing well today. Angiography yesterday with critical multivessel CAD, and preserved left ventricular systolic function. Minimal groin discomfort today. Outpatient Eliquis therapy is recommended given the atrial fibrillation (without symptoms) that was noted at the time of admission. 07-17-17 Patient in the CVC at present for angiogram. Risks and benefits were discussed , and consents were signed. was present with the patient in the CVC. 07-16-17 Patient doing well today. No cardiovascular complaints. Stress testing was performed this morning, and there is an equivocal anterior (small) region of ischaemia noted. No voiced cardiovascular complaints of chest pains or pressure. No PND or orthopnea. Telemetry with normal sinus rhythm noted. Patient might feel slightly less dyspnea today (with normal sinus rhythm reestablished) than yesterday. 07-15-17 Patient is a 67 y/o male with history of HTN (followed by nephrology), HLP (not currently on therapy), GUERDA with CPAP use (no changes or adjustments to therapy have been made for "many years"), gout, and strong, premature CAD to the family , who presented to [facility] with complaints of chest discomfort. Patient not wanting to call the discomfort "pain", but more pressure. What was more concerning to the patient this recent episode (that has been going on for a few three days) was the addition of diaphoresis. No radiation of the discomfort into the shoulder, neck, or jaw. No PND or orthopnea. Compliance with prescribed medical therapy has been good. The patient does not smoke, but does drink approximately one drink per day. Patient with stress testing in the past (likely over three years ago, for reasons that were not clear to the patient), and recommendations to have more recent stress testing, but this was not performed. Mild chest pressure is noted at present, but no pain. No dizziness or lightheadedness has been noted. Blood pressure today, in his room, was noted to be elevated to >150 mm Hg systolic. Telemetry in the ER with newly noted atrial fibrillation (and rate control). Family history with premature CAD (mother had cardiac arrest at age 43). Father lived to be 95 years of age with CAD/CABG history. Plan: (1) CT surgery tomorrow (2) Continue antihypertensive therapy as at present (3) Eliquis (or NOAC of choice) to be further discussed post CABG - consideration for MAZE in setting of CABG Subjective: No cardiovascular complaints today Reviewed/Discussed With: family Objective: Vital Signs (8 Hrs) Temp Pulse Resp BP Pulse Ox 07/18/17 11:33 36.7 C 69 12 128/84 H 95 07/18/17 07:26 36.7 C 70 12 171/116 H 95 Intake/Output (24 Hrs) 07/17/17 07/18/17 07/19/17 05:59 05:59 05:59 Intake Total 1050 1000 Balance 1050 1000 Intake: Oral (ml) 1050 1000 IV Intake (ml) 0 Other: Intake Quantity Yes Sufficient Number of Voids Toilet 3 1 Number of Stools Toilet 1 Result Diagrams: 07/15/17 08:00 07/15/17 08:00 Cardiac Labs: Cardiac Lab Results (72 Hrs) 07/15/17 07/15/17 20:08 13:55 Troponin I 0.018 0.017 Telemetry: Normal sinus rhythm (85 -90 bpm) - Physical Exam Constitutional: WDWN, healthy appearing, no apparent distress, obese Eyes: PERRL, EOMI Ears, Nose, Mouth, Throat: moist mucous membranes Cardiovascular: regular rate and rhythm, no murmurs, no rubs, pulses symmetric bilat, No jugular vein distention Peripheral Pulses: 2+: dorsalis-pedis (R), dorsalis-pedis (L) Respiratory: clear to auscultate bilat, no crackles, no wheezes Gastrointestinal: normoactive bowel sounds Skin: no edema Musculoskeletal: no muscular tenderness Neurologic: AAOx3, CN II-XII grossly intact Psychiatric: cooperative, interactive, following commands ICD10 Worksheet Patient Problems: Problems Problem Status Onset Atrial flutter Acute Chest pain Acute
[2017-07-18] MEDS: ASPIRIN 81 MG CHEWABLE TAB PO SCH (20:20)
[2017-07-18] MEDS ORDERED: CHLORHEXIDINE GLUC HIBICLENS 118 ML BTL TP SCH (21:00)
[2017-07-19] MEDS: EPLERENONE 25 MG TAB PO SCH (08:36)
[2017-07-19] MEDS: ALLOPURINOL 300 MG TAB PO SCH (08:37)
[2017-07-19] MEDS: TORSEMIDE 10 MG TAB PO SCH (08:37)
[2017-07-19] MEDS: MINOXIDIL 10 MG TAB PO SCH (08:37)
[2017-07-19] MEDS: ATORVASTATIN CALCIUM 40 MG TAB PO SCH (08:37)
[2017-07-19] MEDS: CARVEDILOL 25 MG TAB PO SCH (08:37)
[2017-07-19] MEDS ORDERED: LR 1,000 ML IV ONE (09:14)
[2017-07-19] MEDS ORDERED: MUPIROCIN 2% 22 GM OINT NS ONE (10:00)
[2017-07-19] MEDS ORDERED: CITRATE DEXTROSE SOLN 500 ML BAG MISC ONE (10:00)
[2017-07-19] MEDS ORDERED: INSULIN REGULAR HUMAN 100 UNIT in NS 100 ML IV ONE (10:00)
[2017-07-19] MEDS ORDERED: niCARdipine/NACL 200 ML IV SCH (10:00)
[2017-07-19] MEDS ORDERED: PHENYLEPHRINE HCL 50 MG in NS 250 ML IV ONE (10:00)
[2017-07-19] MEDS ORDERED: VERAPAMIL 5 MG, NITROGLYCERIN 2.5 MG, HEPARIN 500 UNIT, SODIUM BICARBONATE 0.2 MEQ in L... MISC ONE (10:00)
[2017-07-19] MEDS ORDERED: NS 1,000 ML IV ONE (10:00)
[2017-07-19] MEDS ORDERED: AMINOCAPROIC ACID 5 GM/20 ML VIAL IV ONE (10:00)
[2017-07-19] MEDS ORDERED: NOREPINEPHRINE BITARTRATE 16 MG in NS 250 ML IV ONE (10:00)
[2017-07-19] MEDS ORDERED: ceFAZolin 2 GM/DEXTROSE 100 ML IV ONE (10:00)
[2017-07-19] MEDS ORDERED: SODIUM BICARBONATE 20 MEQ, LIDOCAINE 1% 10 ML in NORMOSOL-R 1,000 ML MISC ONE (10:00)
[2017-07-19] MEDS ORDERED: MANNITOL 25% 12.5 GM/50 ML VIAL IVP ONE (10:00)
[2017-07-19] MEDS ORDERED: MIDAZOLAM 2 MG/2 ML VIAL IVP ONE (11:47)
--- NOTE | 2017-07-19 11:49 | PDANEPAE ---
ANE History of Present Illness here for cabg ANE Past Medical History - Cardiovascular History Hx Hypertension: Yes Hx Arrhythmias: No Hx Chest Pain: Yes Hx Coronary Artery / Peripheral Vascular Disease: Yes Hx CHF / Valvular Disease: No Hx Palpitations: No - Pulmonary History Hx COPD: No Hx Asthma/Reactive Airway Disease: No Hx Recent Upper Respiratory Infection: No Hx Oxygen in Use at Home: No Hx Sleep Apnea: Yes Sleep Apnea Screening Result - Last Documented: Positive - Endocrine History Hx Diabetes: No Hypothyroid: No Hyperthyroid: No Obesity: mild - Renal History Hx Renal Disorders: No - Liver History Hx Hepatic Disorders: No - Neurological & Psychiatric Hx Hx Neurological and Psychiatric Disorders: No - Chronic Pain History Chronic Pain: Yes ANE Review of Systems Review of systems is: negative Review of Systems: - Exercise capacity Exercise capacity: <4 METS ANE Patient History - Allergies Allergies/Adverse Reactions: Sulfa (Sulfonamide Antibiotics) Allergy (Intermediate, Verified 07/15/17 07:45) Hives - Home Medications Home medications: home medication list seen and reviewed Home Medications: Minoxidil [Minoxidil 10 mg (*)] 20 mg PO BID 08/21/10 [Last Taken 07/15/17] Allopurinol [Allopurinol 300 MG (RX)] 300 mg PO DAILY 07/15/17 [Last Taken 07/15] Aspirin [Aspirin 81mg (*)] 81 mg PO HS 07/15/17 [Last Taken 07/14/17] Carvedilol [Coreg (*)] 25 mg PO BID 07/15/17 [Last Taken 07/15/17] Cholecalciferol Vit D3 [Vitamin D3 (*)] 1,000 units PO DAILY 07/15/17 [Last Taken Unknown] Eplerenone [Inspra 25 MG (*)] 50 mg PO BID 07/15/17 [Last Taken 07/15/17] Herbals/Supplements -Info Only 1 each PO DAILY 07/15/17 [Last Taken Unknown] Torsemide 10 mg PO DAILY 07/15/17 [Last Taken 07/14/17] - NPO status NPO Since - Liquids (Date): 07/19/17 NPO Since - Liquids (Time): 08:30 NPO Since - Solids (Date): 07/18/17 NPO Since - Solids (Time): 20:00 - Anes Hx Anes Hx: no prior problems - Smoking Hx Smoking Status: Never smoked - Alcohol Use Alcohol Use: Occasionally ANE Labs/Vital Signs - Labs Result Diagrams: 07/15/17 08:00 07/15/17 08:00 - Vital Signs Vital Signs: reviewed preoperatively; see RN documention for details Blood Pressure: 146/94 Heart Rate: 73 Respiratory Rate: 16 O2 Sat (%): 93 Height: 180.34 cm Weight: 106.3 kg ANE Physical Exam - Airway Neck exam: FROM Mallampati Score: Class 2 Mouth exam: normal dental/mouth exam - Pulmonary Pulmonary: no respiratory distress - Cardiovascular Cardiovascular: regular rate and rhythym - ASA Status ASA Status: IV ANE Anesthesia Plan Anesthesia Plan: general endotracheal anesthesia Lines/Monitors: arterial line, central line
[2017-07-19] MEDS ORDERED: PROTAMINE SULFATE 50 MG/5 ML VIAL IVP ONE (12:03)
[2017-07-19] MEDS ORDERED: niCARdipine/NACL/200 ML BAG IV ONE (12:04)
[2017-07-19] MEDS ORDERED: CALCIUM CHLORIDE 1 GM/10 ML INJ ONE ×2 (12:04→12:06)
[2017-07-19] MEDS ORDERED: DOPamine/DEXTROSE/250 ML BAG IV ONE (12:04)
[2017-07-19] MEDS ORDERED: HEPARIN 10,000 UNIT/10 ML MDV (1,000 UNIT/ML) ONE ×2 (12:04→12:06)
[2017-07-19] MEDS ORDERED: NA BICARBONATE 50 MEQ/50 ML VIAL ONE (12:04)
[2017-07-19] MEDS ORDERED: MILRINONE/DEXTROSE/100 ML BAG IV ONE (12:04)
[2017-07-19] MEDS ORDERED: ceFAZolin 1 GM VIAL ONE (12:05)
[2017-07-19] MEDS ORDERED: ADENOSINE 6 MG/2 ML VIAL ONE (12:05)
[2017-07-19] MEDS ORDERED: AMIODARONE HCL 150 MG/3 ML VIAL ONE ×2 (12:05→12:06)
[2017-07-19] MEDS ORDERED: NITROGLYCERIN/D5W 50 MG/250 ML BOTTLE IV ONE (12:05)
[2017-07-19] MEDS ORDERED: ALBUMIN 5% 250 ML BOTTLE IV ONE (12:06)
[2017-07-19] MEDS ORDERED: MAGNESIUM SULFATE 1 GM/2 ML VIAL ONE (12:06)
[2017-07-19] MEDS ORDERED: CITRATE DEXTROSE SOLN 500 ML BAG ONE (12:06)
[2017-07-19] MEDS ORDERED: LIDOCAINE 2% 100 MG/5 ML SYR ONE (12:06)
[2017-07-19] MEDS ORDERED: methylPREDNISolone SOD SUCC 1 GM/8 ML VIAL ONE (12:07)
--- NOTE | 2017-07-19 12:48 | PDHPUP ---
History & Physical Update H&P update statement: This history and physical update is based on an assessment of the patient which was completed after admission or registration (within 24 hours), but prior to the surgery/procedure. H&P update: H&P reviewed & patient examined, no change in patient's condition since H&P completed
[2017-07-19] MEDS ORDERED: PAPAVERINE HCL 60 MG/2 ML SDV ONE (12:49)
[2017-07-19] MEDS ORDERED: MINERAL OIL 10 ML VIAL ONE ×2 (12:49→17:14)
[2017-07-19] MEDS ORDERED: VERAPAMIL 5 MG/2 ML VIAL ONE (12:49)
[2017-07-19] MEDS ORDERED: fentaNYL 250 MCG/5 ML INJ ONE ×2 (12:56)
[2017-07-19] MEDS ORDERED: PROPOFOL/EMULSION 500 MG/50 ML BOTTLE IV ONE (12:58)
[2017-07-19] MEDS ORDERED: ISOFLURANE 100 ML BOTTLE IH ONE (14:52)
[2017-07-19] MEDS ORDERED: ROCURONIUM 50 MG/5 ML VIAL ONE (15:10)
[2017-07-19] MEDS ORDERED: MAGNESIUM SULF 2 GM/WATER 50 ML BAG IV ONE (15:49)
[2017-07-19] MEDS ORDERED: SUGAMMADEX SODIUM 200 MG/2 ML VIAL IVP ONE (16:59)
[2017-07-19] MEDS ORDERED: fentaNYL 100 MCG/2 ML INJ ONE (17:20)
[2017-07-19] MEDS ORDERED: PROPOFOL 200 MG/20 ML VIAL ONE (17:23)
[2017-07-19] MEDS ORDERED: DEXMEDETOMIDINE HCL 400 MCG in NS 100 ML IV ONE (17:30)
[2017-07-19] MEDS ORDERED: SODIUM CL NASAL 45 ML BTL EACHNARE PRN (17:48)
[2017-07-19] MEDS ORDERED: PANTOPRAZOLE SODIUM 40 MG VIAL IVP ONE (17:48)
[2017-07-19] MEDS ORDERED: ONDANSETRON DISINTEGRATING 4 MG TAB PO PRN (17:48)
[2017-07-19] MEDS ORDERED: CEPACOL LOZENGE PO PRN (17:48)
[2017-07-19] MEDS ORDERED: MAGNESIUM SULF 2 GM/WATER 50 ML IV ONE (17:48)
[2017-07-19] MEDS ORDERED: METOCLOPRAMIDE 10 MG/2 ML VIAL IVP PRN (17:48)
[2017-07-19] MEDS ORDERED: MAGNESIUM HYDROXIDE 30 ML UDCUP PO PRN (17:48)
[2017-07-19] MEDS ORDERED: MEPERIDINE 25 MG/0.5 ML AMP IVP PRN (17:48)
[2017-07-19] MEDS ORDERED: LACTULOSE 20 GM/30 ML UDCUP PO PRN (17:48)
[2017-07-19] MEDS ORDERED: BISACODYL 10 MG SUPP PR PRN (17:48)
[2017-07-19] MEDS ORDERED: POLYETHYLENE GLYCOL 3350 17 GM PKT PO PRN (17:48)
[2017-07-19] MEDS ORDERED: POTASSIUM Cl (KCl) 50 ML IV PRN (17:48)
[2017-07-19] MEDS ORDERED: D50W 25 GM/50 ML SYR IVP PRN (17:48)
[2017-07-19] MEDS ORDERED: HYDROmorphone HCL/NS 0.5 MG/ML SYR IVP PRN (17:57)
[2017-07-19] MEDS ORDERED: INSULIN REGULAR HUMAN 100 UNIT in NS 100 ML IV SCH (18:00)
[2017-07-19] MEDS ORDERED: NS 1,000 ML IV SCH (18:00)
--- NOTE | 2017-07-19 18:31 | POSTANESTH ---
Post Anesthetic Evaluation Cardiovascular Status: Normal, Stable (on nicardipine for BP control) Respiratory Status: Normal, Stable Level of Consciousness/Mental Status: Mildly Sleepy, Arousable Pain Control: Adequate, Prn Tx Ordered Nausea/Vomiting Control: Adequate, Prn Tx Ordered Complications Possibly Related to Anesthesia: None Noted
[2017-07-19] MEDS: fentaNYL 100 MCG/2 ML INJ IVP PRN ×5 (18:56→22:29)
--- NOTE | 2017-07-19 19:59 | CPEKG ---
Heart Rate: 69 RR Interval: 870 P-R Interval: 168 QRSD Interval: 102 QT Interval: 448 QTC Interval: 480 P [place]: 19 QRS [place]: 52 T Wave [place]: 136 EKG Severity - ABNORMAL ECG - EKG Impression: SINUS RHYTHM EKG Impression: NONSPECIFIC T ABNORMALITIES, LATERAL LEADS EKG Impression: BORDERLINE PROLONGED QT INTERVAL Electronically Signed By: Jethro Munoz 22-Jul-2017 10:18:30
[2017-07-19] MEDS: ALBUMIN 5% 250 ML IV PRN ×2 (21:07→21:45)
[2017-07-19] MEDS: MUPIROCIN 2% 22 GM OINT NS SCH (21:16)
[2017-07-19] MEDS: HYDROCODONE/APAP 5/325 TAB PO PRN (21:39)
[2017-07-19] MEDS: ceFAZolin 2 GM/DEXTROSE 100 ML IV SCH (21:46)
--- NOTE | 2017-07-19 23:15 | GOP ---
[f rep st] OPERATIVE REPORT DATE OF OPERATION: 07/19/2017 SURGEON: Shan Douglas DO PREOPERATIVE DIAGNOSIS: 1. Unstable angina pectoris. 2. Paroxysmal atrial fibrillation. POSTOPERATIVE DIAGNOSIS: 1. Unstable angina pectoris. 2. Paroxysmal atrial fibrillation. PROCEDURE PERFORMED: 1. Coronary artery bypass grafting x5 with left internal mammary artery to the 1st diagonal, sapheno us vein graft to the 2nd diagonal, saphenous vein graft to the lateral circumflex and saphenous vein graft to the posterior lateral branch of the right sequential PDA. 2. Bilateral pulmonary vein ablation utilizing radiofrequency. 3. Endoscopic vein harvest from left leg by STANLEY Kebede, who first assisted throughout the procedur e. FINDINGS: Patient presented with unstable angina pectoris and atrial fibrillation of new onset at a fast rate, is medically stabilized, consented for surgery after diagnostic cath revealed severe tripl e-vessel disease, not amenable to PCI. He was referred for surgical intervention. DESCRIPTION OF PROCEDURE: He was taken the operating room, intubated, monitoring lines were placed. He was prepped and draped in sterile classical manner. Sternotomy was performed. Left internal [place] artery was a 2.8 mm excellent quality vessel. It was harvested. The vein was excellent quality as well. The patient was then heparinized, cannulated. Bypass was begun and cardioplegic arrest wa s obtained with antegrade cardioplegia, retrograde cardioplegia, topical hypothermia, and systemic co oling. Initially, the posterolateral branch of the right and posterior descending branch were perfor med as a sequential anastomosis. There was diffuse plaque throughout the vessels, very poor quality vessels. The conduit was excellent. The graft was tunneled in the oblique sinus, and brought up and anastomosed to the ascending aorta. We then grafted a small 1.2 to 1.3 mm lateral circumflex vessel , which had good flow on injection. This is then brought off the ascending aorta in the standard fas hion. I then grafted the left internal mammary artery to the 1st diagonal, which was the biggest of the 3 anterior wall vessels. The LAD being atretic and extremely small distal to where obstruction a nd was being filled by collaterals. We grafted this to the 1st diagonal. We then placed a vein tylor t to the 2nd diagonal, which was anastomosed to the ascending aorta. The endoscopic vein was harvest ed as well. The cross-clamp was then removed with suction on the ascending aortic vent. It should b e noted atrial clip was placed in the left atrial appendage. No further air was identified. He was weaned from bypass. Heparin was reversed with protamine. The cannula was removed and oversewn. Two ventricular pacing wires, 2 atrial pacing wires, and 3 drains were placed. The thymic fat and peric ardium were closed. Chest was closed in standard fashion. Patient was returned to ICU in stable con dition. /[id number]/MODL
[2017-07-20] MEDS: fentaNYL 100 MCG/2 ML INJ IVP PRN ×2 (00:04→01:02)
[2017-07-20] MEDS: HYDROCODONE/APAP 5/325 TAB PO PRN ×5 (02:08→20:52)
[2017-07-20 04:03] LABS: PLATELET COUNT 168 10^3/uL (150-400)
[2017-07-20] MEDS: ceFAZolin 2 GM/DEXTROSE 100 ML IV SCH ×3 (06:06→22:29)
[2017-07-20] MEDS: HEPARIN 5,000 UNIT/0.5 ML INJ SC SCH ×3 (06:06→20:53)
--- NOTE | 2017-07-20 07:52 | SOAPPROG ---
SOAP Progress Note Assessment/Plan: Assessment: POD#1 Urgent CABG x 5 (HURTADO-large D1, SV-D2, SV-OM1, SV seq PLR-PDA) , EVH LLE, bilateral pulmonary vein isolation w biopolar radiofrequency, prophylactic AtriClip ligation left atrial appendage Sx CAD w preserved LV systolic fx - Diffusely diseased LAD with mid vessel occlusion left alone, o/w fully revascularized. Extubated in the OR. Hemodynamically stable without vasoactive support. No sig volume overload. Secondary prevention w ASA, BB uptitrated as tolerated, and statin when eating well. New onset PAF - Prophylactic PVI and SREEKANTH exclusion completed. Postop rhythm sinus. AF prophylaxis with BB. Antithrombotic prophylaxis with ASA alone if no further dysrhythmia. GUERDA on CPAP - Stable. HTN with LVDD - High dose combination antiHTNs managed by nephrology. Reintro of home regimen as tolerated. Polycythemia - Preop H/H 17/50. Likely sec chronic hypoxemia/GUERDA. No sig surgical blood loss. Postop H/H > 12/40. VTE prophylaxis with SQ hep/SCDs. Plan: Routine POD#1 orders re lines, drains, wires, orals and mobility. Resume torsemide 10 mg daily. Resume coreg at 3.125 mg BID tonight. Tx to PCU. 07/20/17 07:48 Subjective: Feels ok. No dizziness OOB. No nausea. Adequate analgesia. Objective: Vital Signs Temp Pulse Resp BP Pulse Ox 37.3 C 62 13 129/66 H 99 07/20/17 05:00 07/20/17 06:00 07/20/17 06:00 07/20/17 06:00 07/20/17 06:00 Laboratory Results 07/20/17 03:55 07/20/17 03:55 07/19/17 07/20/17 07/21/17 05:59 05:59 05:59 Intake Total 600 1381 Output Total 1860 Balance 600 -479 PT 12.6 SEC (12.0-15.0) 07/17/17 09:00 INR 0.92 (0.83-1.16) 07/17/17 09:00 Stable HR and BP. Modest suppl O2 req. Adequate UOP. No sig CTOP. CXR -> No PTX, mild pulm vasc congestion, bibasilar atelectasis. Labs as expected. Physical Exam - Physical Exam General Appearance: alert, no apparent distress Respiratory: crackles (bases), other (blakes x 2 y-d to pleurovac, serosang drainage, no air leak) Cardiac/Chest: regular rate, rhythm, other (Sternotomy CDI. Vwires intact.) Abdomen: normal bowel sounds, non-tender, soft Skin: warm/dry Extremities: swelling (1+ gen), other (LLE venotomy CDI) ICD10 Worksheet Patient Problems: Problems Problem Status Onset Acute blood loss anemia Acute Atrial flutter Acute CAD in [place] artery Acute Chest pain Acute Paroxysmal atrial fibrillation Acute S/P CABG x 5 Acute ~07/19/17 Status post circumferential ablation of pulmonary vein Acute ~07/19/17
[2017-07-20] MEDS ORDERED: OXYCODONE/APAP 5/325 TAB PO PRN (08:23)
[2017-07-20] MEDS ORDERED: traMADol 50 MG TAB PO PRN (08:23)
[2017-07-20] MEDS: PANTOPRAZOLE SODIUM 40 MG TAB PO SCH (08:51)
[2017-07-20] MEDS: MUPIROCIN 2% 22 GM OINT NS SCH ×2 (09:01→20:53)
[2017-07-20] MEDS: TORSEMIDE 10 MG TAB PO SCH (10:09)
[2017-07-20] MEDS ORDERED: guaiFENesin 600 MG TAB.ER PO ONE (12:28)
[2017-07-20] MEDS ORDERED: CARVEDILOL 3.125 MG TAB PO SCH (18:00)
[2017-07-20] MEDS ORDERED: ASPIRIN EC 81 MG TAB PO ONE (20:51)
[2017-07-20] MEDS: ASPIRIN 81 MG CHEWABLE TAB PO SCH (21:04)
[2017-07-21] MEDS: HYDROCODONE/APAP 5/325 TAB PO PRN (04:15)
[2017-07-21] MEDS: HEPARIN 5,000 UNIT/0.5 ML INJ SC SCH ×3 (06:09→22:00)
[2017-07-21] MEDS: ceFAZolin 2 GM/DEXTROSE 100 ML IV SCH (06:53)
--- NOTE | 2017-07-21 07:57 | SOAPPROG ---
SOAP Progress Note Assessment/Plan: Assessment: POD#2 Urgent CABG x 5 (HURTADO-large D1, SV-D2, SV-OM1, SV seq PLR-PDA) , EVH LLE, bilateral pulmonary vein isolation w biopolar radiofrequency, prophylactic AtriClip ligation left atrial appendage Sx CAD w preserved LV systolic fx - Diffusely diseased LAD with mid vessel occlusion left alone, o/w fully revascularized. Extubated in the OR. Hemodynamically stable without vasoactive support. No sig volume overload. Secondary prevention w ASA, statin, and BB uptitrated as tolerated. New onset PAF - Prophylactic PVI and SREEKANTH exclusion completed. Postop rhythm sinus. AF prophylaxis with BB. Antithrombotic prophylaxis with ASA alone if no recurrent dysrhythmia. GUERDA on CPAP - Stable. Home device in use. HTN with LVDD - High dose combination antiHTNs managed by nephrology. Reintro of home regimen as tolerated. Polycythemia - Preop H/H 17/50. Likely sec chronic hypoxemia/GUERDA. No sig surgical blood loss. Postop H/H > 12/40. VTE prophylaxis with SQ hep/SCDs. Plan: Remove TCPW and yruidia drains. Cont torsemide 10 mg daily. Inc coreg to 6.25 mg BID. Consider resume Inspra tonight. Cont inc activity as tolerated. Wean O2. Dispo - Anticipate home without services in 2-3 days. 07/20/17 07:48 Subjective: Feels well. Improving ambulatory capacity. Adequate analgesia. Eating. No nausea. Passing gas. No acute concerns. Objective: Vital Signs Temp Pulse Resp BP Pulse Ox 36.8 C 78 14 132/85 H 98 07/21/17 07:34 07/21/17 07:34 07/21/17 07:34 07/21/17 07:34 07/21/17 07:34 Laboratory Results 07/20/17 03:55 07/21/17 04:25 07/20/17 07/21/17 07/22/17 05:59 05:59 05:59 Intake Total 1381 1847 Output Total 1860 1740 115 Balance -479 107 -115 PT 12.6 SEC (12.0-15.0) 07/17/17 09:00 INR 0.92 (0.83-1.16) 07/17/17 09:00 Holding SR. Robust SBPs. Min suppl O2 req. Balanced I/Os. CTOP at removal criteria. - Pending Discharge Pending Discharge Within 48 Hours: Yes Pending Discharge Date: 07/23/17 Pending Discharge Time: 11:00 Physical Exam - Physical Exam General Appearance: alert, no apparent distress Respiratory: crackles (coarse, left base, o/w CTA), other (blakes x 2 to bulb suction, thin serosang drainage) Cardiac/Chest: regular rate, rhythm, other (Sternotomy and LLE venotomy CDI. Vwire intact.) Abdomen: non-tender, distended (protuberant) Skin: warm/dry Extremities: swelling (1+ dependent) ICD10 Worksheet Patient Problems: Problems Problem Status Onset Acute blood loss anemia Acute Atrial flutter Acute CAD in [place] artery Acute Chest pain Acute Paroxysmal atrial fibrillation Acute S/P CABG x 5 Acute ~07/19/17 Status post circumferential ablation of pulmonary vein Acute ~07/19/17
[2017-07-21] MEDS: TORSEMIDE 10 MG TAB PO SCH (10:24)
[2017-07-21] MEDS: PANTOPRAZOLE SODIUM 40 MG TAB PO SCH (10:24)
[2017-07-21] MEDS: SENNOSIDES/DOCUSATE SODIUM TAB PO SCH ×2 (10:24→21:30)
[2017-07-21] MEDS: CARVEDILOL 6.25 MG TAB PO SCH ×2 (10:24→17:55)
[2017-07-21] MEDS: ALLOPURINOL 300 MG TAB PO SCH (10:41)
[2017-07-21] MEDS: MUPIROCIN 2% 22 GM OINT NS SCH (10:49)
[2017-07-21] MEDS: EPLERENONE 25 MG TAB PO SCH (14:22)
--- NOTE | 2017-07-21 14:46 | ASMTCMCOM ---
CM Note CM Note Notes: Chart reviewed Discussed with Nita Alfonso. Plan remains for patient to dc without need for services. Cm available should needs arise. Plan: Home Independent Date Signed: 07/21/2017 02:45 PM Electronically Signed By:Trina Seaman RN
[2017-07-21] MEDS: ASPIRIN 81 MG CHEWABLE TAB PO SCH (21:30)
[2017-07-22] MEDS: HEPARIN 5,000 UNIT/0.5 ML INJ SC SCH (06:26)
[2017-07-22] MEDS ORDERED: AMIODARONE A.FIB-6HR INFSN (ORDER 2/3) PREMIX IV ONE (07:00)
[2017-07-22] MEDS ORDERED: AMIODARONE A.FIB-LOAD DOSE(ORDER 1/3) PREMIX IV ONE (07:00)
--- NOTE | 2017-07-22 07:13 | SOAPPROG ---
SOAP Progress Note Assessment/Plan: Assessment: POD#3 Urgent CABG x 5 (HURTADO-large D1, SV-D2, SV-OM1, SV seq PLR-PDA) , EVH LLE, bilateral pulmonary vein isolation w biopolar radiofrequency, prophylactic AtriClip ligation left atrial appendage Sx CAD w preserved LV systolic fx - Diffusely diseased LAD with mid vessel occlusion left alone, o/w fully revascularized. Extubated in the OR. Stable early postop course. Tubes and wires out. Adequately diuresing moderate volume overload. Secondary prevention w ASA, statin, and BB uptitrated as tolerated. New onset PAF - Prophylactic PVI and SREEKANTH exclusion completed. Postop rhythm sinus until this am. Now in AF/Fl with VRs up to 120s. Relatively asx. Amio protocol started. Adjunctive BB as tolerated. Consider DC CVSN if remains in flutter. Antithrombotic prophylaxis with Eliquis for [id number] VASc score of 3. GUERDA on CPAP - Stable. Home device in use. HTN with LVDD - High dose combination antiHTNs managed by nephrology. Reintro of home regimen as tolerated. Polycythemia - Preop H/H 17/50. Likely sec chronic hypoxemia/GUERDA. No sig surgical blood loss. Postop H/H > 12/40. VTE prophylaxis with SQ hep/SCDs. Plan: IV amio as per protocol. Transition to orals tomorrow. Intensify diuresis. Increase Coreg to 12.5 mg BID. Cont inc activity as tolerated. Dispo - Anticipate home without services in 2 days if rhythm stable. 07/22/17 07:05 Subjective: Disappointed by rhythm change. Aware of irregularity. Feels hot. No dizziness. Objective: Vital Signs Temp Pulse Resp BP Pulse Ox 36.6 C 123 H 17 119/89 H 92 07/22/17 03:31 07/22/17 06:37 07/22/17 03:31 07/22/17 06:37 07/22/17 03:31 Laboratory Results 07/20/17 03:55 07/22/17 03:40 07/21/17 07/22/17 07/23/17 05:59 05:59 05:59 Intake Total 1847 1600 Output Total 1740 1415 Balance 107 185 PT 12.6 SEC (12.0-15.0) 07/17/17 09:00 INR 0.92 (0.83-1.16) 07/17/17 09:00 Onset of AF this am, converting to flutter on amio. Variable block. No RVR. No hypotension. Stable 2 lpm suppl O2 req. Sl positive fluid balance. +5 kg overall. Physical Exam - Physical Exam General Appearance: alert, no apparent distress Respiratory: crackles (bases) Cardiac/Chest: irregularly irregular (2-3:1 Aflutter), other (Sternotomy CDI) Abdomen: non-tender, soft Skin: warm/dry Extremities: swelling (trace RLE, 1+ LLE ), other (LLE venotomy CDI) ICD10 Worksheet Patient Problems: Problems Problem Status Onset Acute blood loss anemia Acute Atrial flutter Acute CAD in [place] artery Acute Chest pain Acute Paroxysmal atrial fibrillation Acute S/P CABG x 5 Acute ~07/19/17 Status post circumferential ablation of pulmonary vein Acute ~07/19/17
[2017-07-22] MEDS: SENNOSIDES/DOCUSATE SODIUM TAB PO SCH (07:16)
[2017-07-22] MEDS: PANTOPRAZOLE SODIUM 40 MG TAB PO SCH (07:16)
[2017-07-22] MEDS: CARVEDILOL 6.25 MG TAB PO SCH ×2 (07:16→17:48)
[2017-07-22] MEDS: ALLOPURINOL 300 MG TAB PO SCH (07:16)
[2017-07-22] MEDS: TORSEMIDE 10 MG TAB PO SCH (07:16)
[2017-07-22] MEDS: APIXABAN 5 MG TAB PO SCH ×2 (07:38→20:25)
[2017-07-22] MEDS: ATORVASTATIN CALCIUM 40 MG TAB PO SCH (07:49)
[2017-07-22] MEDS: EPLERENONE 25 MG TAB PO SCH (07:52)
[2017-07-22] MEDS ORDERED: SENNOSIDES/DOCUSATE SODIUM TAB PO PRN (09:00)
[2017-07-22] MEDS ORDERED: ATROPINE SULFATE 1 MG/10 ML SYR IVP ONE (11:46)
[2017-07-22] MEDS ORDERED: AMIODARONE A.FIB-18HR INFSN (ORDER 3/3) IV ONE (13:30)
[2017-07-22] MEDS: FUROSEMIDE 40 MG/4 ML VIAL IVP SCH (15:27)
[2017-07-22] MEDS: ASPIRIN 81 MG CHEWABLE TAB PO SCH (20:25)
--- NOTE | 2017-07-23 07:22 | SOAPPROG ---
SOAP Progress Note Assessment/Plan: POD#4: Urgent CABG x 5 (HURTADO-large D1, SV-D2, SV-OM1, SV seq PLR-PDA), EVH LLE, bilateral pulmonary vein isolation w biopolar radiofrequency, prophylactic AtriClip ligation left atrial appendage Sx CAD w preserved LV systolic fx s/p CABG x5 - Diffusely diseased LAD with mid vessel occlusion left alone. Secondary prevention w ASA, statin, and BB uptitrated as tolerated. New onset PAF - Prophylactic PVI and SREEKANTH exclusion completed. Postop rhythm sinus/flutter. Back in SR. Antithrombotic prophylaxis with Eliquis for [id number] VASc score of 3. GUERDA on CPAP - Stable. Home device in use. DVT prophylaxis - SQ hep/SCDs. Subjective: No complaints. Would like to eat. Objective: Vital Signs Temp Pulse Resp BP Pulse Ox 36.2 C 58 L 12 125/87 H 95 07/23/17 07:16 07/23/17 07:16 07/23/17 07:16 07/23/17 07:16 07/23/17 07:16 Laboratory Results 07/20/17 03:55 07/23/17 05:30 07/22/17 07/23/17 07/24/17 05:59 05:59 05:59 Intake Total 1600 2080 Output Total 1415 2150 Balance 185 -70 PT 12.6 SEC (12.0-15.0) 07/17/17 09:00 INR 0.92 (0.83-1.16) 07/17/17 09:00 Physical Exam - Physical Exam General Appearance: WD/WN, alert, no apparent distress EENT: No scleral icterus (R), No scleral icterus (L) Neck: normal inspection Respiratory: No accessory muscle use Cardiac/Chest: regular rate, rhythm Abdomen: non-tender, soft, No distended Skin: normal color, warm/dry Extremities: pedal edema Neuro/Psych: no motor/sensory deficits, alert, normal mood/affect, oriented x 3 ICD10 Worksheet Patient Problems: Problems Problem Status Onset Acute blood loss anemia Acute Atrial flutter Acute CAD in [place] artery Acute Chest pain Acute Paroxysmal atrial fibrillation Acute S/P CABG x 5 Acute ~07/19/17 Status post circumferential ablation of pulmonary vein Acute ~07/19/17
[2017-07-23] MEDS: FUROSEMIDE 40 MG/4 ML VIAL IVP SCH ×2 (08:22→14:26)
[2017-07-23] MEDS: ATORVASTATIN CALCIUM 40 MG TAB PO SCH (08:22)
[2017-07-23] MEDS: CARVEDILOL 6.25 MG TAB PO SCH ×2 (08:22→17:01)
[2017-07-23] MEDS: PANTOPRAZOLE SODIUM 40 MG TAB PO SCH (08:22)
[2017-07-23] MEDS: APIXABAN 5 MG TAB PO SCH ×2 (08:22→20:20)
[2017-07-23] MEDS: ALLOPURINOL 300 MG TAB PO SCH (08:22)
[2017-07-23] MEDS: AMIODARONE HCL 200 MG TAB PO SCH ×2 (08:22→20:20)
--- NOTE | 2017-07-23 10:08 | PDCARPN ---
Cardiology Progress Note Assessment/Plan: Assessment/plan: 67-year-old male with coronary disease status post urgent 5 vessel CABG last week. Surgery included left atrial appendage ligation and pulmonary vein isolation. He also has hypertension sleep apnea. He did have atrial flutter postoperatively, and is now in sinus rhythm on oral amiodarone and reduce dose beta-amado. 1. Coronary disease: Status post CAB G. Agree with ongoing aspirin, statin, beta-amado. 2. Paroxysmal atrial flutter: He is on Eliquis. We will have to watch his heart rate closely on amiodarone and beta-amado. Amiodarone should be for short term, a few weeks postoperatively. 3. Sleep apnea: Treated. 4. Hypertension: Overall well controlled here. 07/23/17 10:10 Subjective: He feels fairly well. When he was in atrial flutter yesterday he did feel dyspneic and this is improved now that he is in sinus rhythm. No anginal chest pain. Sternotomy pain is manageable. He has been ambulating. Reviewed/Discussed With: family Objective: Vital Signs (8 Hrs) Temp Pulse Resp BP Pulse Ox 07/23/17 07:16 36.2 C 58 L 12 125/87 H 95 07/23/17 06:11 140/92 H 07/23/17 04:00 37.0 C 57 L 18 147/100 H 96 Intake/Output (24 Hrs) 07/22/17 07/23/17 07/24/17 05:59 05:59 05:59 Intake Total 1600 2080 Output Total 1415 2150 Balance 185 -70 Intake: Oral (ml) 1600 1400 IV Infused (ml) 680 Amiodarone HCl 100 ml @ 100 600 mls/hr IV ONCE ONE Rx #:[id number] Amiodarone HCl 200 ml @ 200 33.333 mls/hr IV ONCE ONE Rx#:[id number] Amiodarone HCl 540 mg In 380 D5w 300 ml @ 16.667 mls/ hr IV ONCE ONE Rx#: [id number] Output: Urine (ml) 1300 2150 Toilet 450 Urinal 850 2150 Chest Tube Output (ml) 115 Location 1 Mediastinal 15 Location 2 Mediastinal 100 Other: Weight 109.911 kg 108.6 kg Intake Quantity Yes npo at midnight Sufficient Number of Voids Urinal 1 1 Number of Stools Toilet 1 Urinal 1 1 No acute distress. Sternotomy healing well. Regular rate and rhythm without murmur or gallop Lungs clear to auscultation bilaterally without wheezes rhonchi or rales Trace to 1+ bilateral ankle edema Result Diagrams: 07/20/17 03:55 07/23/17 05:30 Telemetry: Atrial flutter with offset pause to sinus rhythm yesterday evening. ICD10 Worksheet Patient Problems: Problems Problem Status Onset Acute blood loss anemia Acute Status post circumferential ablation of pulmonary vein Acute ~07/19/17 S/P CABG x 5 Acute ~07/19/17 Paroxysmal atrial fibrillation Acute CAD in [place] artery Acute Atrial flutter Acute Chest pain Acute
[2017-07-23] MEDS: POTASSIUM CL 20 MEQ TAB PO SCH ×2 (11:10→14:26)
--- NOTE | 2017-07-23 15:40 | ASMTCMCOM ---
CM Note CM Note Notes: 07/23/2017 Case Management Note phone call from Heather, nurse liason from [facility]. Heather instructed case management to contact[facility] for any [facility] care or durable medical equipment needs. [facility] is a staffing agency and will find home care providers to visit pt in the home if needed. [phone]. Fax is [phone]. Left vm for Heather at [phone] ext [phone] that case management had no needs at this time. Case Management d/c poc: anticipating home independent with cardiac rehab. Case Management to follow. Date Signed: 07/23/2017 03:40 PM Electronically Signed By:Gaby Moreira RN
[2017-07-23] MEDS: ASPIRIN 81 MG CHEWABLE TAB PO SCH (20:21)
--- NOTE | 2017-07-24 06:23 | SOAPPROG ---
SOAP Progress Note Assessment/Plan: POD#5: Urgent CABG x 5 (HURTADO-large D1, SV-D2, SV-OM1, SV seq PLR-PDA), EVH LLE, bilateral pulmonary vein isolation w biopolar radiofrequency, prophylactic AtriClip ligation left atrial appendage Sx CAD w preserved LV systolic fx s/p CABG x5 - Diffusely diseased LAD with mid vessel occlusion left alone. Secondary prevention w ASA, statin, and BB uptitrated as tolerated. New onset PAF - Prophylactic PVI and SREEKANTH exclusion completed. Postop rhythm sinus/flutter. Back in SR. Antithrombotic prophylaxis with Eliquis for [id number] VASc score of 3. GUERDA on CPAP - Stable. Home device in use. DVT prophylaxis - SQ hep/SCDs. Disposition- home today without services. Subjective: Feels well and ready to go home. Objective: Vital Signs Temp Pulse Resp BP Pulse Ox 36.3 C 61 17 145/96 H 96 07/24/17 05:32 07/24/17 05:32 07/24/17 05:32 07/24/17 05:32 07/24/17 05:32 Laboratory Results 07/20/17 03:55 07/23/17 05:30 07/23/17 07/24/17 07/25/17 05:59 05:59 05:59 Intake Total 2080 1250 Output Total 2150 5 Balance -70 -825 PT 12.6 SEC (12.0-15.0) 07/17/17 09:00 INR 0.92 (0.83-1.16) 07/17/17 09:00 Physical Exam - Physical Exam General Appearance: WD/WN, alert, no apparent distress EENT: No scleral icterus (R), No scleral icterus (L) Neck: normal inspection Respiratory: No respiratory distress Cardiac/Chest: regular rate, rhythm Abdomen: non-tender, soft, No distended Skin: normal color, warm/dry Extremities: pedal edema Neuro/Psych: no motor/sensory deficits, alert, normal mood/affect, oriented x 3 ICD10 Worksheet Patient Problems: Problems Problem Status Onset Acute blood loss anemia Acute Atrial flutter Acute CAD in [place] artery Acute Chest pain Acute Paroxysmal atrial fibrillation Acute S/P CABG x 5 Acute ~07/19/17 Status post circumferential ablation of pulmonary vein Acute ~07/19/17
[2017-07-24 07:14] VITALS: BP 134/91
[2017-07-24] MEDS: CARVEDILOL 6.25 MG TAB PO SCH (08:26)
[2017-07-24] MEDS: ALLOPURINOL 300 MG TAB PO SCH (08:26)
[2017-07-24] MEDS: PANTOPRAZOLE SODIUM 40 MG TAB PO SCH (08:27)
[2017-07-24] MEDS: APIXABAN 5 MG TAB PO SCH (08:27)
[2017-07-24] MEDS: AMIODARONE HCL 200 MG TAB PO SCH (08:27)
[2017-07-24] MEDS: POTASSIUM CL 20 MEQ TAB PO SCH (08:27)
[2017-07-24] MEDS: ATORVASTATIN CALCIUM 40 MG TAB PO SCH (08:27)
[2017-07-24] MEDS: FUROSEMIDE 40 MG/4 ML VIAL IVP SCH (08:27)
--- NOTE | 2017-07-24 09:26 | ASDISCHSUM ---
Discharge Information Plan Status:Home with No Needs Medically Cleared to Leave:07/24/2017 Discharge Date:07/24/2017 CM D/C Disposition:Home, Routine, Self-Care ADT D/C Disposition:Home, Routine, Self-Care Projected Discharge Date:07/24/2017 Transportation at D/C:Family Discharge Delay Reason: Follow-Up Date:07/24/2017 Discharge Slot: Final Diagnosis: Placement Information Patient Contact Information Contact Name:ITZ Relationship: Address:[address] Work Phone: City:[place] [facility] Phone: State/Zip Code:[place] [address] Email: Financial Information Financial Class:[employer] Primary Plan Desc:DIOMEDES O O OPEN ACC LOCAL Primary Plan Number:[id number] Secondary Plan Desc: Secondary Plan Number: Assessment Information LACE LACE Length of stay for Answers: 7-13 days current admission Acuity / Level of Answers: Yes Care: Did the patient have an inpatient admission? Comorbidities - select Answers: Coronary Artery Disease all that apply Other Notes: HTN, gout, back surgery, sleep apnea,lower extremity lymphedema # of Emergency department Answers: 1-2 visits in the last 6 months Score: 12 Date Signed: 07/24/2017 09:25 AM Electronically Signed By:Gaby Moreira RN [facility] CM Progress Note CM Note CM Note Notes: Patient admitted with chest pain. A Fib was noted in the ED, but patient has converted back to NSR as of last night. Patient has a family hx of CAD, and he has a hx of HTN, HLP, and UGERDA (uses CPAP at home). He lives with his , is normally independent, and works at [employer]. I don't anticipate any discharge needs but Case Management available if any arise. Current CM Discharge plan: home Date Signed: 07/16/2017 02:41 PM Electronically Signed By:Zee Plummer RN [facility] CM Progress Note CM Note CM Note Notes: 07/18/2017 Case Management Note Discussed case with CAMRON. Pt to have open heart tomorrow. Case Management d/c poc: to be determined. Case Management to follow. Date Signed: 07/18/2017 10:34 AM Electronically Signed By:Gaby Moreira RN [facility] CM Progress Note CM Note CM Note Notes: Chart reviewed Discussed with Nita Alfonso. Plan remains for patient to dc without need for services. Cm available should needs arise. Plan: Home Independent Date Signed: 07/21/2017 02:45 PM Electronically Signed By:Trina Seaman RN [facility] CM Progress Note CM Note CM Note Notes: 07/23/2017 Case Management Note phone call from Heather, nurse liason from [facility]. Heather instructed case management to contacte Madeleine for any home care or durable medical equipment needs. [facility] is a staffing agency and will find home care providers to visit pt in the home if needed. [phone]. Fax is [phone]. Left vm moisés Romero at [phone] ext [phone] that case management had no needs at this time. Case Management d/c poc: anticipating home independent with cardiac rehab. Case Management to follow. Date Signed: 07/23/2017 03:40 PM Electronically Signed By:Gaby Moreira RN Case Management Discharge Plan Note Case Management Discharge Discharge Order Complete? Answers: Yes Patient to Obtain Answers: via Family Medications Transportation Arranged Answers: Family/Friends Discharge Comments Notes: 07/24/2017 Case Management Note Pt to discharge independent with cardiac out patient rehab. Date Signed: 07/24/2017 09:24 AM Electronically Signed By:Gaby Moreira RN Intervention Information
--- NOTE | 2017-07-24 12:07 | PDDCSUM ---
Discharge Summary Discharge Summary: ADMISSION DATE: 07/15/17 DISCHARGE DATE: 07/24/17 DISCHARGE DIAGNOSES 1. CAD 2. Paroxysmal atrial fibrillation 3. Acute blood loss anemia PROCEDURES 07/19/17, Shan Douglas: 1. Urgent CABGx5 (HURTADO-large D1, SVG-D2, SVG-OM1, seq SVG-PLR-PDA) 2. Ablation BL pulmonary veins 3. AtriClip SREEKANTH 4. [facility] COURSE BY PROBLEM LIST 1. CAD - s/p CABGx5. Secondary prevention with beta-amado, aspirin, and statin. 2. Paroxysmal atrial fibrillation - s/p ablation of BL pulmonary veins with exclusion of SREEKANTH. Continue amiodarone and beta-amado. Thromboprophylaxis with Eliquis. 3. Acute blood loss anemia - transfusions not necessary. CONDITION Good DISPOSITION Home, self-care ACTIVITY Pt was instructed on sternal precautions, activity limitations, and which problems to call [facility] with. Please see Discharge Plan in chart for specifics. DISCHARGE MEDICATIONS Continue: Allopurinol [Allopurinol 300 MG (RX)] 300 mg PO DAILY Aspirin [Aspirin 81mg (*)] 81 mg PO HS Cholecalciferol Vit D3 [Vitamin D3 (*)] 1,000 units PO DAILY Herbals/Supplements -Info Only 1 each PO DAILY New: Acetaminophen [Tylenol 325mg (*)] 650 mg PO Q4 PRN Amiodarone HCl [Pacerone (*)] 200 mg PO BID (BID for 7 days then QD for total of 1 month of therapy) Apixaban [Eliquis] 5 mg PO BID Atorvastatin Calcium [Lipitor 40 mg (*)] 40 mg PO DAILY Carvedilol [Coreg (*)] 12.5 mg PO BID Furosemide [Lasix] 40 mg PO BID Potassium Chloride [Klor-Con M20] 20 meq PO BID traMADol [Ultram 50 mg (*)] 50 mg PO Q4HRS PRN Stop: Minoxidil Coreg 25 mg BID Torsemide Eplerenone PENDING STUDIES/LABS 1. CXR prior to surgical follow-up FOLLOW-UP 1. Shan Douglas, 07/30/17, 9:45 PM 2. Luis Pickett, to be arranged
== END 2017-07-24 11:59 | disposition home or self-care (01) | DRG 234 ==
LOC: OBSVTOIN 09:11 → F2W 10:12 → F2N 07-19 10:30 → F2W 07-20 21:11
PROVIDERS: ADMIT Internal Medicine; ATTEND Internal Medicine
PROC: B2151ZZ Fluoroscopy of Left Heart using Low Osmolar Contrast (ICD-10-PCS; 2017-07-17)
PROC: B2111ZZ Fluoroscopy of Multiple Coronary Arteries using Low Osmolar Contrast (ICD-10-PCS; 2017-07-17)
PROC: 4A023N7 Measurement of Cardiac Sampling and Pressure, Left Heart, Percutaneous Approach (ICD-10-PCS; 2017-07-17)
PROC: 06BQ4ZZ Excision of Left Saphenous Vein, Percutaneous Endoscopic Approach (ICD-10-PCS; principal; 2017-07-19 12:15)
PROC: 02100Z9 Bypass Coronary Artery, One Artery from Left Internal Mammary, Open Approach (ICD-10-PCS; principal; 2017-07-19 12:15)
PROC: 02L70CK Occlusion of Left Atrial Appendage with Extraluminal Device, Open Approach (ICD-10-PCS; principal; 2017-07-19 12:15)
PROC: 025S0ZZ Destruction of Right Pulmonary Vein, Open Approach (ICD-10-PCS; principal; 2017-07-19 12:15)
PROC: 025T0ZZ Destruction of Left Pulmonary Vein, Open Approach (ICD-10-PCS; principal; 2017-07-19 12:15)
PROC: 021309W Bypass Coronary Artery, Four or More Arteries from Aorta with Autologous Venous Tissue, Open Approach (ICD-10-PCS; principal; 2017-07-19 12:15)
PROC: 5A1221Z Performance of Cardiac Output, Continuous (ICD-10-PCS; principal; 2017-07-19 12:15)
DX: I25.110 Atherosclerotic heart disease of native coronary artery with unstable angina pectoris (principal); D62 Acute posthemorrhagic anemia; I48.0 Paroxysmal atrial fibrillation; I10 Essential (primary) hypertension; M10.9 Gout, unspecified; G47.33 Obstructive sleep apnea (adult) (pediatric); Z82.49 Family history of ischemic heart disease and other diseases of the circulatory system; E66.9 Obesity, unspecified; Z68.32 Body mass index [BMI] 32.0-32.9, adult; D75.1 Secondary polycythemia
CPT/HCPCS: 82947-QW; 97116-GP; 97161-GP; 97166-GO; 97530-GP; 97535-GO; A9500; C1760; G0378; G8978-GP-CK; G8979-GP-CI; J0153; J0282; J0690; J1265; J1644; J1650; J1815; J1940; J2001; J2150; J2250; J2260; J2370; J2405; J2440; J2704; J2720; J2765; J2785; J2930; J3010; J3475; J7060; P9041; Q9967

== ENCOUNTER → 2017-07-30 | Outpatient (CLI) | payer OTHER | LOC: FIMAGING 08:10 | PROVIDERS: ATTEND Thoracic Surgery (Cardiothoracic Vascular Surgery) | DX: Z98.890 Other specified postprocedural states (principal); J90 Pleural effusion, not elsewhere classified; Z95.1 Presence of aortocoronary bypass graft ==

== ENCOUNTER → 2017-10-11 | Outpatient (CLI) | payer OTHER | LOC: FIMAGING 08:29 | PROVIDERS: ATTEND Internal Medicine Cardiovascular Disease | DX: I25.10 Atherosclerotic heart disease of native coronary artery without angina pectoris (principal); E78.5 Hyperlipidemia, unspecified; I48.0 Paroxysmal atrial fibrillation; I10 Essential (primary) hypertension ==